=== PATIENT | male | born 1940 | race Caucasian/White ===

== ENCOUNTER 2017-04-18 12:24 | Emergency (ER) | payer MEDICARE, BC ==
[2017-04-18 12:52] LABS: Hematocrit 41.9 % (42.0-52.0); Hemoglobin 14.1 gm/dL (13.5-18.0); Mean Cell Volume 93.7 fl (78-100); Mean Corpuscular Hemoglobin 31.5 pg (27-31); Mean Corpuscular Hgb Conc 33.7 g/dl (32-36); Mean Platelet Volume 9.1 fl (6.0-9.5); Neutrophil # 5.6 K/mm3 (1.3-6.0); Neutrophil % 77.2 % (42-75.0); Platelet Count 112 K/mm3 (150-450); Red Blood Count 4.47 M/mm3 (4.7-6.0); Red Cell Distribution Width 13.2 % (11.5-14.0); White Blood Count 7.2 K/mm3 (4.0-10.5)
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
[2017-04-18 13:03] LABS: Prothrombin Time (Patient) 10.9 Seconds (9.4-11.4)
[2017-04-18 13:04] LABS: INR 1.05 INR (0.90-1.10); Partial Thrombolplastin Time 32.3 Seconds (24-32)
[2017-04-18 13:10] LABS: ALT 27 U/L (19-67); AST 27 U/L (0-48); Albumin * 3.8 gm/dl (3.4-5.0); Alkaline Phosphatase * 92 U/L (50-170); Amylase * 51 U/L (25-115); Anion Gap 13.6 mmol/L (6.8-13.8); BUN/Creatinine Ratio 15.6 (9.0-21.6); Bilirubin, Total 0.6 mg/dL (0.0-1.1); Blood Urea Nitrogen 23 mg/dL (6-23); Ca. Corrected For Albumin 8.6 mg/dL (8.4-10.2); Calcium * 8.8 mg/dL (7.9-10.9); Carbon Dioxide 28.8 mmol/L (24-32.6); Chloride 104 mmol/L (97-106); Glucose * 132 mg/dL (70-110); Potassium 4.4 mmol/L (3.4-4.6); Sodium 142 mmol/L (132-142); Total Protein 6.9 gm/dL (6.2-8.2)
[2017-04-18 13:11] LABS: Troponin I 0.072 ng/ml (0.00-0.10)
[2017-04-18 13:26] LABS: Urine Bilirubin Negative (NEGATIVE); Urine Blood Negative /ul (NEGATIVE); Urine Ketone Negative (NEGATIVE); Urine Nitrite Negative (NEGATIVE); Urine Protein Negative (NEGATIVE); Urine Specific Gravity 1.015 SP.GR. (1.005-1.030); Urine Urobilinogen Normal (NORMAL); Urine pH 7.5 pH (5.0-7.0)
[2017-04-18 13:30] VITALS: BP 152/99
[2017-04-18 13:34] LABS: Urine Appearance Clear; Urine Bacteria None Seen; Urine Color Yellow; Urine RBC None Seen /hpf (0-5); Urine WBC TRACE /hpf (0-5)
[2017-04-18 13:43] LABS: Cocaine Ur Negative (NEGATIVE); Urine Barbiturate Negative (NEGATIVE); Urine Benzodiazepines Negative (NEGATIVE); Urine Opiates Negative (NEGATIVE); Urine PCP Negative (NEGATIVE); Urine THC Negative (NEGATIVE)
== END 2017-04-18 13:57 | disposition short-term general hospital (02) ==
LOC: ER 12:24
DX: S06.6X1A Traumatic subarachnoid hemorrhage with loss of consciousness of 30 minutes or less, initial encounter (principal); V19.88XA Pedal cyclist (driver) (passenger) injured in other specified transport accidents, initial encounter; Y93.55 Activity, bike riding; Y92.414 Local residential or business street as the place of occurrence of the external cause; I48.91 Unspecified atrial fibrillation; Z79.01 Long term (current) use of anticoagulants; Z85.828 Personal history of other malignant neoplasm of skin; I10 Essential (primary) hypertension; Z79.899 Other long term (current) drug therapy
CPT/HCPCS: 36415; 70450; 71010; 72125; 73080; 80053; 80307; 81001; 82150; 84484; 85025; 85610; 85730; 86850; 86900; 93005; 96365; 99291; G0390; G0481

== ENCOUNTER 2019-09-17 08:00 | Inpatient (IN) ==
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
[2019-10-22] MEDS ORDERED: TRANEXAMIC ACID 1,000 MG in NORMAL SALINE 100 ML IV PRN (06:00)
[2019-10-22] MEDS ORDERED: ROPIVACAINE HCL/PF 100 MG, EPINEPHrine 0.2 MG, KETOROLAC TROMETHAMINE 30 MG in NORMAL S... IJ PRN (06:00)
[2019-10-22] MEDS ORDERED: MORPHINE SULFATE 15 MG TABLET.SA PO PRN (06:00)
[2019-10-22] MEDS ORDERED: ceFAZolin SODIUM 1 GM VIAL IV PRN (06:00)
[2019-10-22] MEDS: RINGER'S SOLUTION,LACTATED 1,000 ML IV PRN ×3 (11:20→14:15)
[2019-10-22] MEDS ORDERED: ceFAZolin SODIUM 1 GM VIAL ONE (12:01)
[2019-10-22] MEDS ORDERED: PROPOFOL VIAL IV ONE (12:25)
[2019-10-22] MEDS ORDERED: BUPIVACAINE HCL/EPINEPHRINE 50 ML VIAL ONE (12:25)
[2019-10-22] MEDS ORDERED: MIDAZOLAM HCL/PF 5 MG/ML VIAL ONE (12:25)
[2019-10-22] MEDS ORDERED: diphenhydrAMINE HCL 50 MG/ML VIAL IV PRN (15:26)
[2019-10-22] MEDS ORDERED: MAG HYDROX/ALUMINUM HYD/SIMETH 30 ML UDC PO PRN (15:26)
[2019-10-22] MEDS ORDERED: MAGNESIUM HYDROXIDE 30 ML UDC PO PRN (15:26)
[2019-10-22] MEDS ORDERED: MORPHINE SULFATE 2 MG/ML DISP.SYRIN IV PRN (15:26)
[2019-10-22] MEDS ORDERED: ZOLPIDEM TARTRATE 5 MG TABLET PO PRN (15:26)
--- NOTE | 2019-10-22 15:34 | OR ---
Operative Report - Dictated Report Narrative: Date: 10/22/2019 Preoperative diagnosis: Right knee degenerative joint disease. Postoperative diagnosis: Right knee degenerative joint disease. Procedure: Right total knee arthroplasty. Surgeon: Wilfredo Self M.D. Gallery Manager: Tripp Santana PA-C (provided and essential set of skilled, educated hands that assisted with transfer, positioning, prepping, draping, manipulation, retraction, placement of jigs, injection, insertion of implants, irrigation, closure wounds, and dressings all of which could not be performed by the available surgical crew) Anesthesia: Spinal with regional block and local periarticular joint injection. Complications: None Specimens: Bone. Estimated blood loss: Minimal. Tourniquet time: 120 Minutes at 300 millimeters of mercury. Retained implants: Depuy Attune size 7 right lugged cemented posterior stabilized femoral component. Size 7 fixed-bearing cemented tibial platform. 7 by 5 millimeter posterior stabilized cross-linked tibial insert. 41 millimeter medialized patella button. Indications: Mr. Ferraro is a 78-year-old gentleman who has had longstanding bilateral knee pain and arthrosis. He is here today for his first of 2 staged bilateral total knee arthroplasties. Today he is undergoing his right. This patient was followed in my clinic for period of time with significant complaints of right knee pain consistent with arthritic changes. He had failed conservative measures including, but not limited to, activity modification, passage of time, medications, and other conservative measures. Patient wished to proceed with surgical treatment. The risks, benefits, and alternatives were discussed in clinic. The risks of , blood clots, bleeding, infection, nerve/tendon blood vessel/ injury, malposition of components, intraoperative fracture, postoperative limited range of motion, persistent pain, failure of components, and need for additional procedures. Patient wished to proceed consent was obtained after answering all questions. Procedure: After marking the correct extremity on the floor, the patient was taken to the operating room. A timeout was performed. IV antibiotics consisting of Ancef were administered prior to the procedure. A regional followed by spinal anesthetic was induced by anesthesia, per my request, on the operative table with all bony prominences well-padded. Xie catheter was placed, and a bump was placed under the operative side buttock. SCDs and RAUL hose were utilized on the nonoperative leg. A well-padded tourniquet was applied to the operative thigh. The operative leg was then pre-scrubbed with alcohol, prepped, and draped in a standard sterile fashion. After exsanguinating the extremity with an Esmarch bandage, the tourniquet was inflated. After marking out the anterior knee for standard incision centered over the patella, the skin was incised and dissected down to the joint retinaculum. The joint retinaculum was marked out as well as the horizontal axis of the patella, and a standard medial parapatellar arthrotomy was then made. The most proximal aspect of the quadriceps tendon and the patella tendon insertion were protected from release. A partial synovectomy was performed as well as a resection of the infrapatellar fat pad. The distal femoral fat pad proximal to the trochlea was also resected using cautery. The soft tissues were elevated off the medial aspect of the proximal tibia using a Brock elevator ensuring that we did not stone sect the medial collateral ligament. Upon initial evaluation range of motion was approximately 15 degrees to 120 degrees of flexion. There were signs of advanced arthrosis in the medial, lateral, and patellofemoral joint spaces. There were large marginal osteophytes which were removed with a rongeur. The knee was hyperflexed and the patella was tucked laterally. Protecting the surrounding soft tissues with Homans, an entry drill was placed down the femoral canal using Whitesides line for guidance into the entry point. The intramedullary femoral alignment anatoliy was utilized in order to cut the distal femur in 5 degrees of valgus resecting 12 millimeters of bone. Next the distal femur was sized to a size 7. A posterior referencing guide was utilized to place the distal femoral cutting block in 3 degrees of external rotation. This was pinned into place. The rotation was confirmed both visually and based on anatomic landmarks. The 4 in 1 cutting jig of the appropriate size was utilized in order to make all bony cuts. The prasanth wing was used to ensure limited notching. Retractors were utilized in order to protect surrounding soft tissues. We then cut the box centered over the distal femur. This allowed for resection of the anterior and posterior cruciate ligaments. I then turned my attention to the preparation of the tibia. Using an extra medullary tibial alignment anatoliy, 3 millimeters of bone was resected off the medial articular surface. This was made perpendicular to the mechanical axis of the joint with the alignment anatoliy centered over the ankle mortise. The alignment anatoliy was checked and was noted to be parallel to the mechanical axis, centered over the medial one third of the tibial tubercle, paralleling the anterior surface of the tibia. We then turned our attention to the remaining meniscus and soft tissues. These were removed while protecting the surrounding ligaments and soft tissues. The marginal osteophytes off the anterior, posterior, medial, lateral aspects of the femur and tibia were removed. The tibia was sized out to a size 7. Next the tibia was drilled and punched in an externally rotated position. Next the trial femur and a series of tibial inserts were utilized in order to allow for full extension and maximal flexion. It was found that a 5 millimeter insert gave the best range of motion and stability at multiple flexion points as well as at full extension there was less than 2 mm of gapping both medially and laterally. There is minimal anterior translation with the knee at 90 degrees of flexion and no signs of being able to dislocate the knee. The patella was then prepared. The initial thickness was 27 millimeters. This was reamed down to 16 millimeters parallel to the anterior surface of the patella. It was sized out to a size 41 medialized patella button. This was then drilled and trialed. Without any medial restraint the patella tracked appropriately and did not sublux or dislocate. At this point, it was felt these were the appropriate sized implants, and all trials were removed. The standard periarticular joint injection consisting of ropivacaine, Toradol, and epinephrine were injected into the periarticular joint tissues. The bony surfaces were thoroughly irrigated with a pulsatile-suction saline irrigation device. A bone plug from the prior resected anterior chamfer cut was placed into the drill hole at the distal femur. The bony surfaces were then dried in preparation for placement of the implants. The cement was vacuum mixed per the rejogger's instructions. The cement was placed on the dry bony surfaces and posterior aspect of the implants. The implants were impacted into place, removing all extruded cement. At this point anesthesia administered tranexamic acid per protocol intravenously. The knee was placed in extension with axial loading with the trial insert while the cement cured. Once the cement cured, all remaining extruded cement was removed. The knee was placed through a range of motion with the trial insert to ensure appropriate range of motion and stability. Final range of motion was approximately 5 to 120 degrees. The knee was again thoroughly irrigated with pulsatile saline lavage. The final polyethylene insert was then impacted into place ensuring no retained soft tissues. The remaining periarticular joint injection was injected. A medium Hemovac drain was placed exiting superior laterally. The knee was then placed over a triangle and the arthrotomy was closed with interrupted #1 Vicryl after thoroughly irrigating the joint. The deep and subcutaneous tissues were closed with interrupted 0 and 3-0 Vicryl respectively. Skin was closed with a running subcutaneous 3-0 Monocryl and Prineo Dermabond dressing. 4 x 4's, Sof-Rol, and a full leg Armando wrap were applied. All sponge, needle, blade, and instrument counts were correct prior to closing the wounds. Postoperative condition: The patient was awoken and transferred to the postanesthesia care unit in stable condition. Plan is to be admitted to the inpatient medical/surgical floor postoperatively for 24 hours of IV antibiotics, physical therapy, occupational therapy, and medical comanagement. Patient will be weightbearing as tolerated with range of motion as tolerated. DVT prophylaxis will be with SCDs, RAUL hose, and pharmacological anticoagulation.
--- NOTE | 2019-10-22 15:57 | ANES ---
Post Anesthesia Discharge - Transfer of Care Transfer of Care handoff given to nurse: Yes - Discharge from PACU Discharge from PACU when meets criteria: Yes - Discharge to ASU Discharge to ASU-no complications/pt stable: Yes
--- NOTE | 2019-10-22 15:58 | ANES ---
Post Anesthesia Assessment - Vital Signs Vitals: Last Vital Signs Temp 36.7 C 10/22/19 15:50 Pulse 67 10/22/19 15:55 Resp 14 10/22/19 15:55 BP 109/70 10/22/19 15:55 Pulse Ox 96 10/22/19 15:55 Airway Patency: Normal - Mental Status Level Of Consciousness: Awake - Pain Level Pain Score: 0 - N/V Assessment Nausea/Vomiting Presence: None Dehydration:: No
[2019-10-22] MEDS: MORPHINE SULFATE 10 MG/0.5 ML SYRINGE PO PRN ×2 (17:29→23:54)
[2019-10-22] MEDS: KETOROLAC TROMETHAMINE 15 MG/ML VIAL IV SCH ×2 (17:30→22:53)
[2019-10-22] MEDS: ceFAZolin SODIUM 1 GM in DEXTROSE 5 % IN WATER 50 ML IV SCH ×2 (17:32)
[2019-10-22] MEDS: DEXTROSE 5%-LACTATED RINGERS 1,000 ML IV PRN (17:32)
[2019-10-22] MEDS ORDERED: METOPROLOL SUCCINATE 25 MG PO SCH (21:00)
[2019-10-22] MEDS: MORPHINE SULFATE 15 MG TABLET.SA PO SCH (21:15)
[2019-10-22] MEDS: ACETAMINOPHEN 500 MG TABLET PO PRN (21:15)
[2019-10-22] MEDS: SENNOSIDES/DOCUSATE SODIUM 1 TAB TABLET PO SCH (21:16)
[2019-10-22] MEDS: BETA-CAROTENE(A) W-C , E/MIN 1 TAB TABLET PO SCH (21:16)
[2019-10-22] MEDS: METOPROLOL SUCCINATE 25 MG TABLET.SA PO SCH (21:35)
[2019-10-23] MEDS: ceFAZolin SODIUM 1 GM in DEXTROSE 5 % IN WATER 50 ML IV SCH ×4 (00:27→05:11)
[2019-10-23] MEDS: DEXTROSE 5%-LACTATED RINGERS 1,000 ML IV PRN (00:58)
[2019-10-23] MEDS: KETOROLAC TROMETHAMINE 15 MG/ML VIAL IV SCH (04:08)
[2019-10-23] MEDS: MORPHINE SULFATE 10 MG/0.5 ML SYRINGE PO PRN ×3 (05:17→16:33)
[2019-10-23 06:59] LABS: Anion Gap 10.3 mmol/L (6.8-13.8); Calcium * 8.5 mg/dL (7.9-10.9); Carbon Dioxide 28.1 mmol/L (24-32.6); Estimated Creat Clear 38.6; Potassium 4.4 mmol/L (3.4-4.6)
[2019-10-23 07:11] LABS: Hematocrit 36.8 % (42.0-52.0); Hemoglobin 11.9 gm/dL (13.5-18.0); Mean Cell Volume 96.8 fl (78-100); Mean Corpuscular Hemoglobin 31.3 pg (27-31); Mean Corpuscular Hgb Conc 32.3 g/dl (32-36); Mean Platelet Volume 9.8 fl (8-11.3); Red Cell Distribution Width 14.1 % (11.5-14.0); White Blood Count 6.4 K/mm3 (4.0-10.5)
[2019-10-23 07:19] LABS: Platelet Count 80 K/mm3 (150-450)
--- NOTE | 2019-10-23 08:45 | PN ---
Subjective - Date and Time Seen Date: 10/23/19 Time: 07:50 Subjective Narrative: Patient reports pain controlled. No nausea or upset stomach. Was able to eat breakfast. No lightheadedness. Has no complaints at this time. Feels ready for tomorrow LTKA. Objective Objective Narrative: RLE Bandages C/D/I. Able to wiggle toes. No ankle movement due to fusion. Patient up in chair. Alert and oriented. No distress. Labs and vitals reviewed. - Vitals Vitals: Last Vital Signs Temp 37.0 C 10/23/19 07:11 Pulse 78 10/23/19 07:11 Resp 16 10/23/19 07:11 BP 143/79 10/23/19 07:11 Pulse Ox 96 10/23/19 07:11 - Abnormal Lab Findings Abnormal Lab Findings: Abnormal Lab Results 10/23/19 10/23/19 Range/Units 06:48 06:48 RBC 3.80 L (4.7-6.0) M/mm3 Hgb 11.9 L (13.5-18.0) gm/dL Hct 36.8 L (42.0-52.0) % MCH 31.3 H (27-31) pg RDW 14.1 H (11.5-14.0) % Plt Count 80 L (150-450) K/mm3 BUN 30 H (6-23) mg/dL Creatinine 1.58 H (0.4-1.4) mg/dL Est GFR (Non-Af Amer) 45 L (60-130) mL/min Random Glucose 136 H (70-110) mg/dL Cauti Physician Documentation - Urinary Catheter Management Urethral (Xie) Date of Insertion: 10/22/19 Time of Insertion: 13:20 Assessment/Plan - Problems/Diagnosis (1) Status post total right knee replacement Problem: Acute Narrative: PT, pain control, anticoagulation. Left leg marked for tomorrow. NPO midnight tonight. (2) Acute blood loss anemia Problem: Acute Narrative: 11.9 down from 15.2 grams. Asymptomatic. Observation at this time. (3) Hypertension Problem: Chronic Qualifiers:
[2019-10-23] MEDS: HYDROCHLOROTHIAZIDE 25 MG TABLET PO SCH (08:46)
[2019-10-23] MEDS: LOSARTAN POTASSIUM 50 MG TABLET PO SCH (08:46)
[2019-10-23] MEDS: MULTIVITAMINS 1 CAP CAPSULE PO SCH (08:46)
[2019-10-23] MEDS: ALLOPURINOL 300 MG TABLET PO SCH (08:46)
[2019-10-23] MEDS: BETA-CAROTENE(A) W-C , E/MIN 1 TAB TABLET PO SCH ×2 (08:46→20:39)
[2019-10-23] MEDS: ACETAMINOPHEN 500 MG TABLET PO PRN (08:49)
[2019-10-23] MEDS: MORPHINE SULFATE 15 MG TABLET.SA PO SCH ×2 (08:49→20:42)
[2019-10-23] MEDS ORDERED: APIXABAN 2.5 MG TABLET PO SCH (09:00)
[2019-10-23] MEDS ORDERED: FLU VACC QS2019-20(6MOS UP)/PF 60 MCG/0.5 ML SYRINGE IM ONE (09:00)
[2019-10-23] MEDS: METOPROLOL SUCCINATE 25 MG TABLET.SA PO SCH (20:38)
[2019-10-23] MEDS: SENNOSIDES/DOCUSATE SODIUM 1 TAB TABLET PO SCH (20:39)
[2019-10-24] MEDS: ACETAMINOPHEN 500 MG TABLET PO PRN (02:56)
[2019-10-24] MEDS: RINGER'S SOLUTION,LACTATED 1,000 ML IV PRN ×2 (05:49→12:12)
[2019-10-24] MEDS ORDERED: TRANEXAMIC ACID 1,000 MG in NORMAL SALINE 100 ML IV PRN (06:00)
[2019-10-24] MEDS ORDERED: ceFAZolin SODIUM 1 GM VIAL IV PRN (06:00)
[2019-10-24] MEDS ORDERED: ROPIVACAINE HCL/PF 100 MG, EPINEPHrine 0.2 MG, KETOROLAC TROMETHAMINE 15 MG in NORMAL S... IJ PRN (06:00)
[2019-10-24] MEDS: MORPHINE SULFATE 15 MG TABLET.SA PO SCH ×2 (08:24→20:11)
[2019-10-24] MEDS: LOSARTAN POTASSIUM 50 MG TABLET PO SCH (08:24)
[2019-10-24] MEDS: HYDROCHLOROTHIAZIDE 25 MG TABLET PO SCH (08:24)
[2019-10-24] MEDS ORDERED: ceFAZolin SODIUM 1 GM VIAL ONE (08:31)
[2019-10-24] MEDS ORDERED: ISOPROPYL ALCOHOL 480 APPL BTL MC ONE (08:40)
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
[2019-10-24] MEDS ORDERED: BUPIVACAINE HCL/EPINEPHRINE 50 ML VIAL IJ ONE (08:55)
[2019-10-24] MEDS ORDERED: LIDOCAINE HCL 20 ML VIAL ONE (08:55)
[2019-10-24] MEDS ORDERED: NORMAL SALINE 20 ML VIAL ONE (08:56)
[2019-10-24] MEDS ORDERED: BUPIVACAINE HCL/PF 10 ML VIAL ONE (08:56)
[2019-10-24] MEDS ORDERED: MIDAZOLAM HCL/PF 5 MG/ML VIAL ONE (08:56)
[2019-10-24] MEDS ORDERED: PROPOFOL VIAL IV ONE (08:56)
[2019-10-24] MEDS: BETA-CAROTENE(A) W-C , E/MIN 1 TAB TABLET PO SCH ×2 (10:53→20:11)
--- NOTE | 2019-10-24 12:08 | ANES ---
Anesthesia Procedure Note Procedure Note: ANESTHESIA PROCEDURE NOTE Date of procedure: 10/24/2011. Time of procedure: 1005. Performed by: Javier Mckenzie CRNA Impregnator: Adeola Leiva RN . Preprocedure diagnosis: Left knee DJD.. Post procedure diagnosis: Same. Procedure: Ultrasound-guided left adductor canal block for postoperative analgesia Indications: Postoperative analgesia. Findings: Patient brought to operating room #3, sedated and given a spinal anesthetic. Patient was then placed in the supine position. His left inner thigh was prepped with ChloraPrep. Ultrasound utilized to identify the saphenous nerve in the left adductor canal. A 20-gauge 4 inch regional block needle was advanced under ultrasound guidance until tip of needle was positioned just distal to the sartorius muscle. 20 mL of 0.25% Marcaine with epinephrine 1-200,000 was injected with adequate spread of local anesthesia noted. Regional block needle was removed intact. EBL: Minimal. Fluids: N/A. Specimen: N/A. Post procedure condition: The patient tolerated the procedure well. No complications were noted. Thank you for this consultation Javier Mckenzie CRNA
[2019-10-24] MEDS ORDERED: DEXTROSE 5%-LACTATED RINGERS 1,000 ML IV PRN (12:11)
[2019-10-24] MEDS ORDERED: MAG HYDROX/ALUMINUM HYD/SIMETH 30 ML UDC PO PRN (12:11)
--- NOTE | 2019-10-24 12:18 | OR ---
Operative Report - Dictated Report Narrative: Date: 10/24/2019 Preoperative diagnosis: Left knee degenerative joint disease. Postoperative diagnosis: Left knee degenerative joint disease. Procedure: Left total knee arthroplasty. Surgeon: Wilfredo Self M.D. Supervisor Special Services: Gil Dickey PA-C (provided and essential set of skilled, educated hands that assisted with transfer, positioning, prepping, draping, manipulation, retraction, placement of jigs, injection, insertion of implants, irrigation, closure wounds, and dressings all of which could not be performed by the available surgical crew) Anesthesia: Spinal with regional block and local periarticular joint injection. Complications: None Specimens: Bone. Estimated blood loss: Minimal. Tourniquet time: 105 Minutes at 300 millimeters of mercury. Retained implants: Depuy Attune size 8 left lugged cemented posterior stabilized femoral component. Size 7 fixed-bearing cemented tibial platform. 8 by 5 millimeter posterior stabilized cross-linked tibial insert. 41 millimeter medialized patella button. Indications: Mr. Ferraro is a 78-year-old gentleman who is here today for his second of 2 staged bilateral total knee arthroplasties on the left. This patient was followed in my clinic for period of time with significant complaints of left knee pain consistent with arthritic changes. He had failed conservative measures including, but not limited to, activity modification, passage of time, medications, and other conservative measures. Patient wished to proceed with surgical treatment. The risks, benefits, and alternatives were discussed in clinic. The risks of , blood clots, bleeding, infection, nerve/tendon blood vessel/ injury, malposition of components, intraoperative fracture, postoperative limited range of motion, persistent pain, failure of components, and need for additional procedures. Patient wished to proceed consent was obtained after answering all questions. Procedure: After marking the correct extremity on the floor, the patient was taken to the operating room. A timeout was performed. IV antibiotics consisting of Ancef were administered prior to the procedure. A regional followed by spinal anesthetic was induced by anesthesia, per my request, on the operative table with all bony prominences well-padded. Xie catheter was already in place, and a bump was placed under the operative side buttock. SCDs and RAUL hose were utilized on the nonoperative leg. A well-padded tourniquet was applied to the operative thigh. The operative leg was then pre-scrubbed with alcohol, prepped, and draped in a standard sterile fashion. After exsanguinating the extremity with an Esmarch bandage, the tourniquet was inflated. After marking out the anterior knee for standard incision centered over the patella, the skin was incised and dissected down to the joint retinaculum. The joint retinaculum was marked out as well as the horizontal axis of the patella, and a standard medial parapatellar arthrotomy was then made. The most proximal aspect of the quadriceps tendon and the patella tendon insertion were protected from release. A partial synovectomy was performed as well as a resection of the infrapatellar fat pad. The distal femoral fat pad proximal to the trochlea was also resected using cautery. The soft tissues were elevated off the medial aspect of the proximal tibia using a Brock elevator ensuring that we did not transect the medial collateral ligament. Upon initial evaluation range of motion was approximately 5 degrees to 110 degrees of flexion. There were signs of advanced arthrosis in the medial, lateral, and patellofemoral joint spaces. There were large marginal osteophytes which were removed with a rongeur. The knee was hyperflexed and the patella was tucked laterally. Protecting the surrounding soft tissues with Homans, an entry drill was placed down the femoral canal using Whitesides line for guidance into the entry point. The intramedullary femoral alignment anatoliy was utilized in order to cut the distal femur in 5 degrees of valgus resecting 11 millimeters of bone. Next the distal femur was sized to a size 8. A posterior referencing guide was utilized to place the distal femoral cutting block in 3 degrees of external rotation. This was pinned into place. The rotation was confirmed both visually and based on anatomic landmarks. The 4 in 1 cutting jig of the appropriate size was utilized in order to make all bony cuts. The prasanth wing was used to ensure no notching. Retractors were utilized in order to protect surrounding soft tissues. This cut did not result in any excessive notching. We then cut the box centered over the distal femur. This allowed for resection of the anterior and posterior cruciate ligaments. I then turned my attention to the preparation of the tibia. Using an extra medullary tibial alignment anatoliy, 3 millimeters of bone was r esected off the medial articular surface. This was made perpendicular to the mechanical axis of the joint with the alignment anatoliy centered over the ankle mortise. The alignment anatoliy was checked and was noted to be parallel to the mechanical axis, centered over the medial one third of the tibial tubercle, paralleling the anterior surface of the tibia. We then turned our attention to the remaining meniscus and soft tissues. These were removed while protecting the surrounding ligaments and soft tissues. The marginal osteophytes off the anterior, posterior, medial, lateral aspects of the femur and tibia were removed. The tibia was sized out to a size 7. Next the tibia was drilled and punched in an externally rotated position. Next the trial femur and a series of tibial inserts were utilized in order to allow for full extension and maximal flexion. It was found that a 5 millimeter insert gave the best range of motion and stability at multiple flexion points as well as at full extension there was less than 2 mm of gapping both medially and laterally. There is minimal anterior translation with the knee at 90 degrees of flexion and no signs of being able to dislocate the knee. The patella was then prepared. The initial thickness was 25 millimeters. This was reamed down to 15 millimeters parallel to the anterior surface of the patella. It was sized out to a size 41 medialized patella button. This was then drilled and trialed. Without any medial restraint the patella tracked appropriately and did not sublux or dislocate. At this point, it was felt these were the appropriate sized implants, and all trials were removed. The standard periarticular joint injection consisting of ropivacaine, Toradol, and epinephrine were injected into the periarticular joint tissues. The bony surfaces were thoroughly irrigated with a pulsatile-suction saline irrigation device. A bone plug from the prior resected anterior chamfer cut was placed into the drill hole at the distal femur. The bony surfaces were then dried in preparation for placement of the implants. The cement was vacuum mixed per the studio producer's instructions. The cement was placed on the dry bony surfaces and posterior aspect of the implants. The implants were impacted into place, removing all extruded cement. At this point anesthesia administered tranexamic acid per protocol intravenously. The knee was placed in extension with axial loading with the trial insert while the cement cured. Once the cement cured, all remaining extruded cement was removed. The knee was placed through a range of motion with the trial insert to ensure appropriate range of motion and stability. Final range of motion was approximately 0 to 120 degrees. The knee was again thoroughly irrigated with pulsatile saline lavage. The final polyethylene insert was then impacted into place ensuring no retained soft tissues. The remaining periarticular joint injection was injected. A medium Hemovac drain was placed exiting superior laterally. The knee was then placed over a triangle and the arthrotomy was closed with interrupted #1 Vicryl after thoroughly irrigating the joint. The deep and subcutaneous tissues were closed with interrupted 0 and 3-0 Vicryl respectively. Skin was closed with a running subcutaneous 3-0 Monocryl and Prineo Dermabond dressing. 4 x 4's, Sof-Rol, and a full leg Armando wrap were applied. All sponge, needle, blade, and instrument counts were correct prior to closing the wounds. Postoperative condition: The patient was awoken and transferred to the postanesthesia care unit in stable condition. Plan is to be admitted to the inpatient medical/surgical floor postoperatively for 24 hours of IV antibiotics, physical therapy, occupational therapy, and medical comanagement. Patient will be weightbearing as tolerated with range of motion as tolerated. DVT prophylaxis will be with SCDs, RAUL hose, and pharmacological anticoagulation. Anticipated hospital stay is approximately 1-3 days.
--- NOTE | 2019-10-24 12:30 | ANES ---
Post Anesthesia Assessment - Vital Signs Vitals: Last Vital Signs Temp 36.8 C 10/24/19 08:39 Pulse 96 10/24/19 08:39 Resp 20 10/24/19 08:39 BP 113/67 10/24/19 08:39 Pulse Ox 93 10/24/19 07:10 Airway Patency: Normal - Mental Status Level Of Consciousness: Awake - Pain Level Pain Score: 0 - N/V Assessment Nausea/Vomiting Presence: None Dehydration:: No
[2019-10-24] MEDS: ALLOPURINOL 300 MG TABLET PO SCH (13:00)
[2019-10-24] MEDS: DEXTROSE 5%-LACTATED RINGERS 1,000 ML IV PRN ×2 (13:00→22:41)
[2019-10-24] MEDS: MULTIVITAMINS 1 CAP CAPSULE PO SCH (13:00)
[2019-10-24] MEDS: ceFAZolin SODIUM 1 GM in DEXTROSE 5 % IN WATER 100 ML IV SCH ×4 (14:44→20:14)
[2019-10-24] MEDS: ONDANSETRON HCL/PF 2 MG/ML VIAL IV PRN (18:31)
[2019-10-24] MEDS: METOPROLOL SUCCINATE 25 MG TABLET.SA PO SCH (20:13)
[2019-10-24] MEDS: SENNOSIDES/DOCUSATE SODIUM 1 TAB TABLET PO SCH (20:14)
[2019-10-24] MEDS ORDERED: METOPROLOL SUCCINATE 25 MG TABLET.SA PO SCH (21:00)
[2019-10-25] MEDS: ACETAMINOPHEN 500 MG TABLET PO PRN ×4 (01:03→23:23)
[2019-10-25] MEDS: ceFAZolin SODIUM 1 GM in DEXTROSE 5 % IN WATER 100 ML IV SCH ×2 (02:26)
[2019-10-25 06:30] LABS: Hematocrit 33.4 % (42.0-52.0); Hemoglobin 10.7 gm/dL (13.5-18.0); Mean Cell Volume 97.4 fl (78-100); Mean Corpuscular Hemoglobin 31.2 pg (27-31); Mean Platelet Volume 9.6 fl (8-11.3); Platelet Count 74 K/mm3 (150-450); Red Blood Count 3.43 M/mm3 (4.7-6.0)
[2019-10-25 06:37] LABS: BUN/Creatinine Ratio 17.4 (9.0-21.6); Calcium * 8.4 mg/dL (7.9-10.9); Carbon Dioxide 27.5 mmol/L (24-32.6); Estimated Creat Clear 37.9; Potassium 4.5 mmol/L (3.4-4.6)
--- NOTE | 2019-10-25 07:54 | PN ---
Subjective - Date and Time Seen Date: 10/25/19 Time: 07:52 Subjective Narrative: Subjective: Reports difficulty sleeping. Was able to get to the chair with therapy. Pain is well-controlled. Voiding without any complications. Tolerating by mouth intake. Denies any nausea or vomiting. Denies calf pain. Physical exam: Alert and oriented to person, place and time Bilateral lower extremity: Palpable dorsalis pedis pulse. Sensation grossly intact to light touch. Dressings clean and intact on the left. Able to flex and extend ankle and toes. No excessive drainage. Calf and thigh are soft and nontender. Assessment: Postop day 1 status post left total knee arthroplasty, postop day 3 status post right total knee arthroplasty. Plan: Due to the need for pain control, post-operative limited mobility, protection of the surgical site and joint, monitoring of the wound, and the management of chronic medical conditions, he requires continued inpatient care. Continue with physical and occupational therapy weightbearing as tolerated. Continue with anticoagulation. 24 hours postoperative prophylactic antibiotics. Pain control with goal to rely on oral medications. Continue bowel regimen. Will need 6 weeks with walker or assitive device to protect joint while ambulating during the recovery process. Discharge planning. Discontinue drain and Xie catheter. Objective - Vitals Vitals: Last Vital Signs Temp 36.5 C 10/24/19 20:10 Pulse 101 H 10/25/19 02:15 Resp 18 10/25/19 02:15 BP 142/62 10/25/19 02:15 Pulse Ox 95 10/25/19 02:15 - Abnormal Lab Findings Abnormal Lab Findings: Abnormal Lab Results 10/25/19 10/25/19 Range/Units 06:24 06:24 RBC 3.43 L (4.7-6.0) M/mm3 Hgb 10.7 L (13.5-18.0) gm/dL Hct 33.4 L (42.0-52.0) % MCH 31.2 H (27-31) pg Plt Count 74 L (150-450) K/mm3 BUN 28 H (6-23) mg/dL Creatinine 1.61 H (0.4-1.4) mg/dL Est GFR (Non-Af Amer) 44 L (60-130) mL/min Random Glucose 136 H (70-110) mg/dL Cauti Physician Documentation - Urinary Catheter Management Urethral (Xie) Date of Insertion: 10/22/19 Time of Insertion: 13:20 Date of Removal: 10/25/19 Time of Removal: 05:00 Assessment/Plan - Problems/Diagnosis (1) Status post total left knee replacement Problem: Acute (2) Acute blood loss anemia Problem: Acute (3) Status post total right knee replacement Problem: Acute (4) Atrial fibrillation Problem: Chronic Qualifiers: Atrial fibrillation type: chronic (5) Hypertension Problem: Chronic Qualifiers:
[2019-10-25] MEDS ORDERED: NON-FORMULARY 1 DOSE DOSE (Losartan Potassium [Cozaar] 100 MG) PO SCH (09:00)
[2019-10-25] MEDS: LOSARTAN POTASSIUM 50 MG TABLET PO SCH (09:17)
[2019-10-25] MEDS: HYDROCHLOROTHIAZIDE 25 MG TABLET PO SCH (09:18)
[2019-10-25] MEDS: ALLOPURINOL 300 MG TABLET PO SCH (09:18)
[2019-10-25] MEDS: BETA-CAROTENE(A) W-C , E/MIN 1 TAB TABLET PO SCH ×2 (09:18→20:47)
[2019-10-25] MEDS: MORPHINE SULFATE 15 MG TABLET.SA PO SCH (09:18)
[2019-10-25] MEDS: APIXABAN 2.5 MG TABLET PO SCH ×2 (09:18→20:46)
[2019-10-25] MEDS: MULTIVITAMINS 1 CAP CAPSULE PO SCH (09:18)
[2019-10-25] MEDS: SENNOSIDES/DOCUSATE SODIUM 1 TAB TABLET PO SCH (20:46)
[2019-10-25] MEDS: METOPROLOL SUCCINATE 25 MG TABLET.SA PO SCH (20:47)
[2019-10-25 22:21] LABS: Urine Bilirubin Negative (NEGATIVE); Urine Blood 250 /ul (NEGATIVE); Urine Ketone Negative (NEGATIVE); Urine Nitrite Negative (NEGATIVE); Urine Protein Negative (NEGATIVE); Urine Specific Gravity 1.015 SP.GR. (1.005-1.030); Urine Urobilinogen Normal (NORMAL)
[2019-10-25 22:31] LABS: Urine Appearance Clear (CLEAR); Urine Bacteria None Seen; Urine Color Dark Yellow; Urine WBC None Seen /hpf (0-5)
[2019-10-26] MEDS: ACETAMINOPHEN 500 MG TABLET PO PRN ×2 (06:30→13:40)
[2019-10-26] MEDS ORDERED: TAMSULOSIN HCL 0.4 MG CAP.SR.24H PO ONE (08:00)
[2019-10-26] MEDS: BETA-CAROTENE(A) W-C , E/MIN 1 TAB TABLET PO SCH ×2 (08:09→20:37)
[2019-10-26] MEDS: HYDROCHLOROTHIAZIDE 25 MG TABLET PO SCH (08:09)
[2019-10-26] MEDS: ALLOPURINOL 300 MG TABLET PO SCH (08:09)
[2019-10-26] MEDS: LOSARTAN POTASSIUM 50 MG TABLET PO SCH (08:09)
[2019-10-26] MEDS: MULTIVITAMINS 1 CAP CAPSULE PO SCH (08:09)
[2019-10-26] MEDS: APIXABAN 2.5 MG TABLET PO SCH ×2 (08:13→20:38)
--- NOTE | 2019-10-26 12:15 | CONS ---
[facility] - General Date of Service: 10/26/19 Source: patient - History of Present Illness Initial Comments: 78-year-old male who I am asked to consult on for penile edema and bruising. He underwent bilateral knee replacements, one on Tuesday the other on Tuesday. He had a Xie catheter placed with the first procedure. He is had pretty extensive penile swelling. The catheter is out now. He reports prior to the procedure having no known swelling although did have some troubles urinating at times. He was placed on Flomax today. 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 Otherwise no prior urological surgery. No known history of urinary tract infection. No known history of urological familial problems such as prostate cancer or bladder cancer. Social history: nonsmoker Allergies/Adverse Reactions: Allergies oxycodone [From OxyContin] Adverse Reaction (Mild, Verified 10/22/19 16:13) vomiting Home Medications: Home Medications Medication Instructions Recorded Last Taken multivitamin 1 tab PO DAILY 03/30/18 10/22/19 apixaban 2.5 mg tablet 2.5 mg PO BID 10/06/18 10/15/19 acetaminophen 500 mg tablet 1,000 mg PO Q6H PRN tab 12/19/18 Unknown vitamins A,C,G-bjsy-fuvqjc 14,320 1 cap PO BID cap 12/19/18 10/22/19 unit-226 mg-200 unit capsule allopurinol 300 mg tablet 300 mg PO DAILY #90 tab 09/10/19 10/22/19 hydrochlorothiazide 25 mg tablet 25 mg PO DAILY #90 tab 10/09/19 10/22/19 sildenafil (pulm.hypertension) 20 See Rx Instructions .ROUTE 10/09/19 10/22/19 mg tablet .COMPLEX #30 unknown measurement unit code: tablet Losartan Potassium [Cozaar] 100 mg PO DAILY 10/22/19 Unknown Metoprolol Succinate 75 mg PO HS 10/22/19 Unknown Procedures Ankle fusion (07/05/00) Application or administration of an adhesion barrier substance (05/02/15) Colonoscopy (01/10/09) Excision of bone for graft, other bones (07/05/00) Insertion of intraocular lens prosthesis at time of cataract extraction, one- stage (12/05/07) Introduction of Adhesion Barrier into Peritoneal Cavity, Open Approach (05/02/15) Non-invasive placement of bone growth stimulator (05/25/01) Other and open repair of indirect inguinal hernia with graft or prosthesis (05/02/15) Other local excision or destruction of lesion of joint, foot and toe (10/15/10) Phacoemulsification and aspiration of cataract (12/05/07) Removal of implanted devices from bone, tibia and fibula (05/25/01) Supplement Right Inguinal Region with Synthetic Substitute, Open Approach (05/02/15) Medications - Medications Current Medications: Current Medications Acetaminophen (Tylenol) 1,000 mg PO Q6H PRN PRN Reason: Mild pain (pain scale 1-3) Stop: 11/21/19 15:27 Last Admin: 10/26/19 06:30 Dose: 1,000 mg Documented by: Al Hydrox/Mg Hydrox/Simethicone (Maalox Plus Suspension) 30 ml PO Q6H PRN PRN Reason: Indigestion Stop: 11/21/19 15:27 Last Admin: 10/23/19 01:58 Dose: 30 ml Documented by: Allopurinol (Zyloprim) 300 mg PO DAILY [facility] Stop: 11/22/19 09:01 Last Admin: 10/26/19 08:09 Dose: 300 mg Documented by: Apixaban (Eliquis) 2.5 mg PO BID [facility] Stop: 11/24/19 09:01 Last Admin: 10/26/19 08:13 Dose: 2.5 mg Documented by: Hydrochlorothiazide (Hydrodiuril) 25 mg PO DAILY [facility] Stop: 11/22/19 09:01 Last Admin: 10/26/19 08:09 Dose: 25 mg Documented by: Dextrose/Lactated Ringer's (Dextrose 5%-Lr) 1,000 mls @ 125 mls/hr IV .Q8H PRN PRN Reason: HYDRATION Stop: 11/21/19 15:27 Last Infusion: 10/25/19 07:00 Dose: Infused Documented by: Losartan Potassium (Cozaar) 100 mg PO DAILY [facility] Stop: 11/22/19 09:01 Last Admin: 10/26/19 08:09 Dose: 100 mg Documented by: Metoprolol Succinate (Toprol Xl) 75 mg PO HS [facility] Stop: 11/21/19 21:31 Last Admin: 10/25/19 20:47 Dose: 75 mg Documented by: Morphine Sulfate (Morphine Sulfate Conc. Oral Solution) 10 mg PO Q2H PRN PRN Reason: Moderate Pain (pain scale 4-6) Stop: 11/21/19 15:27 Last Admin: 10/23/19 16:33 Dose: 10 mg Documented by: Multivitamins/Folic Acid (Multivitamin Madhuri) 1 cap PO DAILY [facility] Stop: 11/22/19 09:01 Last Admin: 10/26/19 08:09 Dose: 1 cap Documented by: Ondansetron HCl (Zofran) 4 mg IV Q4H PRN PRN Reason: Nausea And Vomiting Stop: 11/21/19 15:27 Last Admin: 10/24/19 18:31 Dose: 4 mg Documented by: Senna/Docusate Sodium (Senokot-S) 2 tab PO HS [facility] Stop: 11/21/19 21:01 Last Admin: 10/25/19 20:46 Dose: 2 tab Documented by: Vit A/Vit C/Vit E/Selen/Cu/Zn/Lutei (Ocuvite) 1 tab PO BID [facility] Stop: 11/21/19 21:01 Last Admin: 10/26/19 08:09 Dose: 1 tab Documented by: Review of Systems - Review of Systems Generalized/Overall Review: Present: No Symptoms Reported EENTM: Present: No Symptoms Reported Respiratory: Present: No Symptoms Reported Cardiac: Present: No Symptoms Reported Abdominal: Present: No Symptoms Reported Genitourinary: Present: Frequency, Hesitancy Musculoskeletal: Present: Joint Pain Neurological: Present: No Symptoms Reported Skin: Present: No Symptoms Reported Endocrine: Present: No Symptoms Reported Physical Examination - Exam Vital Signs: Vital Signs - Last Taken Temp 98.2 F 10/26/19 11:43 Pulse 85 10/26/19 11:43 Resp 16 10/26/19 11:43 BP 146/77 10/26/19 11:43 Pulse Ox 95 10/26/19 11:43 O2 Oxygen Delivery Method Room Air Constitutional: Present: Alert, Oriented x3 ENT Exam: Present: hearing grossly normal Neck: Present: full range of motion Respiratory: Present: lungs clear, no respiratory distress Cardiovascular/Chest: Present: normal peripheral pulses Abdomen: Present: Normal bowel sounds, soft, nontender, obese /Rectal: Present: Other - Penis and scrotum are swollen and ecchymotic. The meatus could be visualized although the foreskin was edematous. No signs of infection - Results and Findings: Narrative: Patient has postoperative penile edema. I see no acute problems. Recommend elevation and ice while he is in bed or in the chair. May take several weeks to completely resolve. Call back if acute changes. Patient also likely has underlying BPH. Recommend continuing Flomax when he goes home. Lab/Microbiology results last 24 hrs: Abnormal/Pending Laboratory Last 24 HRS 10/25/19 22:15 Urine Blood 250 H Urine RBC 5-10 H - Assessments/Findings (1) Penile edema Problem: Acute
--- NOTE | 2019-10-26 13:01 | PN ---
Subjective - Date and Time Seen Date: 10/26/19 Time: 10:00 Subjective Narrative: Subjective: Reports better sleep. Was able to walk 30-40 ft with therapy although needed significant stand by assistance. Pain is well-controlled. Voiding without any complications this AM but had some retension last PM. Has some penile and scrotal swelling. Tolerating by mouth intake. Denies any nausea or vomiting. Denies calf pain. Physical exam: Alert and oriented to person, place and time Bilateral lower extremity: Palpable dorsalis pedis pulse. Sensation grossly intact to light touch. Wounds benign. Able to flex and extend ankle and toes. No excessive drainage. Calf and thigh are soft and nontender. Assessment: Postop day 2 status post left total knee arthroplasty, postop day 4 status post right total knee arthroplasty. Plan: Due to the need for pain control, post-operative limited mobility, protection of the surgical site and joint, monitoring of the wound, and the management of chronic medical conditions, he requires continued inpatient care. Continue with physical and occupational therapy weightbearing as tolerated. Continue with anticoagulation. Pain control with goal to rely on oral medications. Continue bowel regimen. Will need 6 weeks with walker or assitive device to protect joint while ambulating during the recovery process. Discharge planning. UA performed (negative for UTI) and urology consult. Objective - Vitals Vitals: Last Vital Signs Temp 36.8 C 10/26/19 11:43 Pulse 85 10/26/19 11:43 Resp 16 10/26/19 11:43 BP 146/77 10/26/19 11:43 Pulse Ox 95 10/26/19 11:43 - Abnormal Lab Findings Abnormal Lab Findings: Abnormal Lab Results 10/25/19 Range/Units 22:15 Urine Blood 250 H (NEGATIVE) /ul Urine RBC 5-10 H (0-5) /hpf [facility] Physician Documentation - Urinary Catheter Management Urethral (Xie) Date of Insertion: 10/22/19 Time of Insertion: 13:20 Date of Removal: 10/25/19 Time of Removal: 05:00 Assessment/Plan - Problems/Diagnosis (1) Status post total left knee replacement Problem: Acute (2) Acute blood loss anemia Problem: Acute (3) Status post total right knee replacement Problem: Acute (4) Atrial fibrillation Problem: Chronic Qualifiers: Atrial fibrillation type: chronic (5) Hypertension Problem: Chronic Qualifiers:
[2019-10-26] MEDS: TAMSULOSIN HCL 0.4 MG CAP.SR.24H PO SCH (18:47)
[2019-10-26] MEDS: MORPHINE SULFATE 10 MG/0.5 ML SYRINGE PO PRN (18:53)
[2019-10-26] MEDS: METOPROLOL SUCCINATE 25 MG TABLET.SA PO SCH (20:37)
[2019-10-26] MEDS: SENNOSIDES/DOCUSATE SODIUM 1 TAB TABLET PO SCH (20:38)
[2019-10-27] MEDS: ACETAMINOPHEN 500 MG TABLET PO PRN (04:52)
[2019-10-27] MEDS: MORPHINE SULFATE 10 MG/0.5 ML SYRINGE PO PRN ×3 (08:42→16:57)
[2019-10-27] MEDS: ALLOPURINOL 300 MG TABLET PO SCH (08:42)
[2019-10-27] MEDS: LOSARTAN POTASSIUM 50 MG TABLET PO SCH (08:43)
[2019-10-27] MEDS: HYDROCHLOROTHIAZIDE 25 MG TABLET PO SCH (08:43)
[2019-10-27] MEDS: APIXABAN 2.5 MG TABLET PO SCH ×2 (08:43→21:00)
[2019-10-27] MEDS: MULTIVITAMINS 1 CAP CAPSULE PO SCH (08:43)
[2019-10-27] MEDS: BETA-CAROTENE(A) W-C , E/MIN 1 TAB TABLET PO SCH ×2 (08:43→21:00)
--- NOTE | 2019-10-27 13:51 | PN ---
Subjective - Date and Time Seen Date: 10/27/19 Time: 13:48 Subjective Narrative: Subjective: Was able to walk in the halls and negotiate small riser steps with therapy although needed stand by assistance. Pain is tolerable but he feels it could be better controlled. Voiding improved and swelling improved. Tolerating by mouth intake. Denies any nausea or vomiting. Denies calf pain. Physical exam: Alert and oriented to person, place and time Bilateral lower extremity: Palpable dorsalis pedis pulse. Sensation grossly intact to light touch. Wounds benign. Able to flex and extend ankle and toes. No excessive drainage. Calf and thigh are soft and nontender. Assessment: Postop day 3 status post left total knee arthroplasty, postop day 5 status post right total knee arthroplasty. Plan: Due to the need for pain control, post-operative limited mobility, protection of the surgical site and joint, monitoring of the wound, and the management of chronic medical conditions, he requires continued inpatient care. Continue with physical and occupational therapy weightbearing as tolerated. Continue with anticoagulation. Pain control with goal to rely on oral medications - will adjust PRN dosing. Continue bowel regimen. Will need 6 weeks with walker to protect joint while ambulating during the recovery process. Discharge planning. Urology recommends ice/elevation and flomax for urinary issues Objective - Vitals Vitals: Last Vital Signs Temp 36.8 C 10/27/19 10:33 Pulse 99 10/27/19 10:33 Resp 20 10/27/19 10:33 BP 137/79 10/27/19 10:33 Pulse Ox 96 10/27/19 10:33 [facility] Physician Documentation - Urinary Catheter Management Urethral (Xie) Date of Insertion: 10/22/19 Time of Insertion: 13:20 Date of Removal: 10/25/19 Time of Removal: 05:00 Assessment/Plan - Problems/Diagnosis (1) Status post total left knee replacement Problem: Acute (2) Acute blood loss anemia Problem: Acute (3) Status post total right knee replacement Problem: Acute (4) Atrial fibrillation Problem: Chronic Qualifiers: Atrial fibrillation type: chronic (5) Hypertension Problem: Chronic Qualifiers:
[2019-10-27] MEDS: TAMSULOSIN HCL 0.4 MG CAP.SR.24H PO SCH (18:18)
[2019-10-27] MEDS: SENNOSIDES/DOCUSATE SODIUM 1 TAB TABLET PO SCH (21:00)
[2019-10-27] MEDS: METOPROLOL SUCCINATE 25 MG TABLET.SA PO SCH (21:00)
[2019-10-28] MEDS: ACETAMINOPHEN 500 MG TABLET PO PRN (00:55)
[2019-10-28] MEDS: MORPHINE SULFATE 10 MG/0.5 ML SYRINGE PO PRN ×2 (08:41→16:06)
[2019-10-28] MEDS: MULTIVITAMINS 1 CAP CAPSULE PO SCH (08:43)
[2019-10-28] MEDS: ALLOPURINOL 300 MG TABLET PO SCH (08:43)
[2019-10-28] MEDS: BETA-CAROTENE(A) W-C , E/MIN 1 TAB TABLET PO SCH ×2 (08:43→20:27)
[2019-10-28] MEDS: LOSARTAN POTASSIUM 50 MG TABLET PO SCH (08:43)
[2019-10-28] MEDS: HYDROCHLOROTHIAZIDE 25 MG TABLET PO SCH (08:43)
[2019-10-28] MEDS: APIXABAN 2.5 MG TABLET PO SCH ×2 (08:43→20:27)
[2019-10-28] MEDS: ONDANSETRON HCL/PF 2 MG/ML VIAL IV PRN (12:07)
--- NOTE | 2019-10-28 15:43 | PN ---
Subjective - Date and Time Seen Date: 10/28/19 Time: 15:41 Subjective Narrative: Subjective: Pain better controlled today. Bed and room mobility improving. Voiding improved and swelling improved. Tolerating by mouth intake. Denies any nausea or vomiting. Denies calf pain. Physical exam: Alert and oriented to person, place and time Bilateral lower extremity: Palpable dorsalis pedis pulse. Sensation grossly intact to light touch. Wounds benign. Able to flex and extend ankle and toes. No excessive drainage. Calf and thigh are soft and nontender. Assessment: Postop day 4 status post left total knee arthroplasty, postop day 6 status post right total knee arthroplasty. Plan: Due to the need for pain control, post-operative limited mobility, protection of the surgical site and joint, monitoring of the wound, and the management of chronic medical conditions, he requires continued inpatient care. Continue with physical and occupational therapy weightbearing as tolerated. Continue with anticoagulation. Continue bowel regimen. Will need 6 weeks with walker to protect joint while ambulating during the recovery process. Discharge planning - possible [facility] home tomorrow. Objective - Vitals Vitals: Last Vital Signs Temp 36.7 C 10/28/19 14:25 Pulse 80 10/28/19 14:25 Resp 20 10/28/19 14:25 BP 142/77 10/28/19 14:25 Pulse Ox 96 10/28/19 14:25 Cauti Physician Documentation - Urinary Catheter Management Urethral (Xie) Date of Insertion: 10/22/19 Time of Insertion: 13:20 Date of Removal: 10/25/19 Time of Removal: 05:00 Assessment/Plan - Problems/Diagnosis (1) Status post total left knee replacement Problem: Acute (2) Acute blood loss anemia Problem: Acute (3) Status post total right knee replacement Problem: Acute (4) Atrial fibrillation Problem: Chronic Qualifiers: Atrial fibrillation type: chronic (5) Hypertension Problem: Chronic Qualifiers:
[2019-10-28] MEDS: TAMSULOSIN HCL 0.4 MG CAP.SR.24H PO SCH (18:57)
[2019-10-28] MEDS: SENNOSIDES/DOCUSATE SODIUM 1 TAB TABLET PO SCH (20:27)
[2019-10-28] MEDS: METOPROLOL SUCCINATE 25 MG TABLET.SA PO SCH (20:27)
[2019-10-29] MEDS: MORPHINE SULFATE 10 MG/0.5 ML SYRINGE PO PRN (06:55)
[2019-10-29] MEDS: BETA-CAROTENE(A) W-C , E/MIN 1 TAB TABLET PO SCH (11:29)
[2019-10-29] MEDS: APIXABAN 2.5 MG TABLET PO SCH (11:29)
[2019-10-29] MEDS: LOSARTAN POTASSIUM 50 MG TABLET PO SCH (11:29)
[2019-10-29] MEDS: MULTIVITAMINS 1 CAP CAPSULE PO SCH (11:29)
[2019-10-29] MEDS: ACETAMINOPHEN 500 MG TABLET PO PRN (11:30)
[2019-10-29] MEDS: ALLOPURINOL 300 MG TABLET PO SCH (11:30)
[2019-10-29] MEDS: HYDROCHLOROTHIAZIDE 25 MG TABLET PO SCH (11:30)
--- NOTE | 2019-10-29 12:47 | DS ---
(1) Status post total left knee replacement Problem: Acute (2) Acute blood loss anemia Problem: Acute (3) Status post total right knee replacement Problem: Acute (4) Atrial fibrillation Problem: Chronic Qualifiers: Atrial fibrillation type: chronic (5) Hypertension Problem: Chronic Qualifiers: (6) CKD (chronic kidney disease) stage 3, GFR 30-59 ml/min Problem: Acute Date of Discharge:: 10/29/19 Hospital Course: Mr. Ferraro was admitted to the floor after undergoing staged bilateral total knee arthroplasties. Tolerated this well. Was admitted to the floor postoperatively for 24 hours of IV antibiotics, pain control, medical comanag ement, and occupational and physical therapy. OT and PT were consulted to assist with activities of daily living and ambulation. Was made weightbearing as tolerated with range of motion as tolerated. Pain was initially controlled with IV regimen. This was transitioned to oral once tolerating a by mouth intake. Was resumed on home diet and medications. Had a Xie catheter inserted and the operating room which was discontinued on postoperative day 1 after his second knee. A drain was placed intraoperatively into each knee which was discontinued on postoperative day 1. Eliquis SCD and RAUL hose were utilized for DVT prophylaxis. Vital signs remained stable to the hospital course. Labs were obtained which showed a final hemoglobin of 10.7 grams. Pre-op hemoglobin was 15.2. BMP was reviewed he was noted to have some renal insufficiency consistent with kidney disease stage III due to a BUN of 28 and a creatinine of 1.6 and a GFR of 44. He also had some urinary retention which resolved spontaneously with some Flomax as well as a urology consultation was placed secondary to some swelling which it was recommended that this be treated conservatively. Physical examination throughout the hospital course showed an extremity that had sensation that was intact to light touch, palpable pulses, a benign wound, motor intact to the toes, ankle, and knee. Knee range of motion was approximately 5 degrees to 60 degrees. He was slow to progress with therapy and needed additional assistance for mobility and thus was felt that he would benefit from continued inpatient therapy prior to returning home. He is being transferred to a intermediate facility today. Instructions: Continue with weightbearing as tolerated and range of motion as tolerated. It is okay to shower and get the wound wet as long as there is no drainage from the wound. Do not bathe or soak the wound. If there is any drainage from the wound keep the wound clean and dry and cover with dry gauze and tape. Change every 2- 3 days as needed if there is any drainage. Cover wound while showering if there is any drainage. Continue with physical therapy. Resume home diet. Report any fever over 101.5 Fahrenheit, uncontrolled pain, increased drainage, foul odor of drainage, new or increased calf pain or shortness of breath, or any other significant complaints. Continue with RAUL hose on the lower extremities until instructed otherwise. No driving until instructed otherwise. Follow up in approximately 2-3 weeks. Procedures Performed: see notes below List Procedures: Bilateral total knee arthroplasty, urology consultation Results and Findings: Lab Pending Results 10/23/19 06:48: WBC 6.4, RBC 3.80 L, Hgb 11.9 L, Hct 36.8 L, MCV 96.8, MCH 31.3 H, MCHC 32.3, RDW 14.1 H, Plt Count 80 L, MPV 9.8 10/23/19 06:48: Sodium 137, Plasma Sodium 138, Potassium 4.4, Chloride 103, Carbon Dioxide 28.1, Anion Gap 10.3, BUN 30 H, Creatinine 1.58 H, Est GFR (Non- Af Amer) 45 L, BUN/Creatinine Ratio 19.0, Random Glucose 136 H, Calcium 8.5 10/25/19 06:24: WBC 8.0 D, RBC 3.43 L, Hgb 10.7 L, Hct 33.4 L, MCV 97.4, MCH 31.2 H, MCHC 32.0, RDW 14.0, Plt Count 74 L, MPV 9.6 10/25/19 06:24: Sodium 134, Plasma Sodium 135, Potassium 4.5, Chloride 99, Carbon Dioxide 27.5, Anion Gap 12.0, BUN 28 H, Creatinine 1.61 H, Est GFR (Non- Af Amer) 44 L, BUN/Creatinine Ratio 17.4, Random Glucose 136 H, Calcium 8.4 10/25/19 22:15: Urine Color Dark yellow, Urine Appearance Clear, Urine pH 6.0, Ur Specific [place] 1.015, Urine Protein Negative, Urine Glucose (UA) Negative, Urine Ketones Negative, Urine Blood 250 H, Urine Nitrate Negative, Urine Bilirubin Negative, Urine Urobilinogen Normal, Ur Leukocyte Esterase Negative, Urine RBC 5-10 H, Urine WBC None seen, Ur Epithelial Cells None seen, Urine Bacteria None seen, Urine Culture Comments No culture indicated Discharge Location: [facility] Disposition: SNF Condition: Good Discharge Activity: Activity as tolerated, Weight bearing Discharge Diet: General/regular food Assisted Therapy: Physical Therapy, Occupation Therapy Referrals: Ilan Jean MD [Primary Care Provider] - Wilfredo Self MD [Staff Physician] - 11/13/19 9:45 am Problem Oriented Discharge Instructions to Patient/Family: Total Knee Replacement, Care After, [id number] Additional Patient Instructions (free text): To [facility] for therapies, PT and OT to evaluate and treat. Follow up at [facility] with Dr. Self in Orthopedic office on TuesdayNovember 12 at 9:45a.m. Prescriptions (Any new or edited meds): Morphine Sulfate 1 - 2 tab PO Q4H PRN #60 tab PRN Reason: Pain Transmission Status: Sent to [facility] Complete Home Medications List: Complete Home Medication List: multivitamin 1 tab PO DAILY 03/30/18 apixaban 2.5 mg tablet 2.5 mg PO BID 10/06/18 acetaminophen 500 mg tablet 1,000 mg PO Q6H PRN tab 12/19/18 vitamins A,C,E-folk-wyonhy 14,320 unit-226 mg-200 unit capsule 1 cap PO BID cap 12/19/18 allopurinol 300 mg tablet 300 mg PO DAILY #90 tab 09/10/19 hydrochlorothiazide 25 mg tablet 25 mg PO DAILY #90 tab 10/09/19 sildenafil (pulm.hypertension) 20 mg tablet See Rx Instructions .ROUTE .COMPLEX #30 unknown measurement unit code: tablet 10/09/19 Losartan Potassium [Cozaar] 100 mg PO DAILY 10/22/19 Metoprolol Succinate 75 mg PO HS 10/22/19 Morphine Sulfate 1 - 2 tab PO Q4H PRN #60 tab 10/29/19
[2019-10-29 13:45] VITALS: BP 114/61
== END 2019-10-29 13:55 | DRG 462 ==
LOC: MS 10-22 10:31 → EDSTATUS 10-22 11:30
PROVIDERS: ADMIT Orthopaedic Surgery; ATTEND Orthopaedic Surgery
CPT/HCPCS: 36415; 73560; 80048; 81001; 85027; 90686; 97110; 97116; 97161; 97164; 97165; 97530; 97535; J2405

== ENCOUNTER 2019-10-30 17:55 | Inpatient (IN) ==
[2019-10-30 19:01] LABS: Prothrombin Time (Patient) 12.1 Seconds (9.1-10.7)
[2019-10-30 19:03] LABS: Albumin * 2.2 gm/dl (3.4-5.0); Anion Gap 11.9 mmol/L (6.8-13.8); BUN/Creatinine Ratio 20.5 (9.0-21.6); Bilirubin, Total 1.7 mg/dL (0.0-1.1); Ca. Corrected For Albumin 9.1 mg/dL (8.4-10.2); Carbon Dioxide 28.7 mmol/L (24-32.6); INR 1.23 INR (0.92-1.08); Potassium 4.6 mmol/L (3.4-4.6); Total Protein 6.2 gm/dL (6.2-8.2)
[2019-10-30 19:06] LABS: Hematocrit 29.3 % (42.0-52.0); Hemoglobin 9.4 gm/dL (13.5-18.0); Mean Cell Volume 96.4 fl (78-100); Mean Corpuscular Hemoglobin 30.9 pg (27-31); Mean Corpuscular Hgb Conc 32.1 g/dl (32-36); Mean Platelet Volume 8.8 fl (8-11.3); Neutrophil # 9.2 K/mm3 (1.3-6.0); Neutrophil % 80.3 % (42-75.0); Platelet Count 235 K/mm3 (150-450); Red Blood Count 3.04 M/mm3 (4.7-6.0); Red Cell Distribution Width 14.7 % (11.5-14.0); White Blood Count 11.4 K/mm3 (4.0-10.5)
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
[2019-10-30] MEDS ORDERED: DIATRIZOATE MEGLUMINE, SODIUM 30 ML BTL PO ONE (19:26)
[2019-10-30] MEDS ORDERED: ONDANSETRON HCL/PF 2 MG/ML VIAL ONE (20:56)
[2019-10-30] MEDS ORDERED: ONDANSETRON HCL/PF 2 MG/ML VIAL IV ONE (20:57)
[2019-10-30 22:19] LABS: Urine Appearance Clear (CLEAR); Urine Bacteria TRACE; Urine Bilirubin 1 mg/dl (NEGATIVE); Urine Blood Negative /ul (NEGATIVE); Urine Color Yellow; Urine Ketone 5 mg/dL (NEGATIVE); Urine Nitrite Negative (NEGATIVE); Urine Protein Negative (NEGATIVE); Urine RBC None Seen /hpf (0-5); Urine Specific Gravity >=1.030 SP.GR. (1.005-1.030); Urine Urobilinogen Normal (NORMAL); Urine WBC 0-5 /hpf (0-5)
[2019-10-30] MEDS ORDERED: ONDANSETRON HCL/PF 2 MG/ML VIAL IV PRN (23:58)
[2019-10-31] MEDS ORDERED: SIMETHICONE 80 MG TAB.CHEW PO PRN (01:38)
[2019-10-31] MEDS ORDERED: MORPHINE SULFATE 4 MG/ML SYRG IV PRN (01:39)
[2019-10-31] MEDS ORDERED: NORMAL SALINE 1,000 ML IV PRN (01:40)
[2019-10-31] MEDS: MAGNESIUM HYDROXIDE 30 ML UDC PO SCH ×3 (02:05→20:56)
[2019-10-31] MEDS ORDERED: METOPROLOL SUCCINATE 100 MG TABLET.SA PO ONE (04:53)
[2019-10-31] MEDS ORDERED: BUMETANIDE 0.25 MG/ML VIAL IV ONE (04:55)
[2019-10-31] MEDS ORDERED: METOPROLOL SUCCINATE 25 MG TABLET.SA PO ONE (05:05)
[2019-10-31] MEDS ORDERED: METOPROLOL SUCCINATE 25 MG TABLET.SA PO SCH ×2 (05:15→21:00)
[2019-10-31] MEDS ORDERED: METOPROLOL SUCCINATE 50 MG TABLET.SA PO ONE (05:15)
[2019-10-31 05:33] LABS: Hematocrit 27.6 % (42.0-52.0); Hemoglobin 8.9 gm/dL (13.5-18.0); Mean Cell Volume 95.5 fl (78-100); Mean Corpuscular Hemoglobin 30.8 pg (27-31); Mean Corpuscular Hgb Conc 32.2 g/dl (32-36); Mean Platelet Volume 8.2 fl (8-11.3); Neutrophil % 85.9 % (42-75.0); Platelet Count 224 K/mm3 (150-450); Red Blood Count 2.89 M/mm3 (4.7-6.0); Red Cell Distribution Width 14.7 % (11.5-14.0)
[2019-10-31 06:03] LABS: Albumin * 1.9 gm/dl (3.4-5.0); Anion Gap 12.5 mmol/L (6.8-13.8); BUN/Creatinine Ratio 26.5 (9.0-21.6); CKMB 2.4 ng/mL (0.0-9.0); Ca. Corrected For Albumin 9.2 mg/dL (8.4-10.2); Calcium * 7.8 mg/dL (7.9-10.9); Carbon Dioxide 28.1 mmol/L (24-32.6); Potassium 4.6 mmol/L (3.4-4.6); Total Protein 5.7 gm/dL (6.2-8.2)
[2019-10-31 06:06] LABS: Troponin I 0.023 ng/mL (0.00-0.10)
[2019-10-31] MEDS ORDERED: MORPHINE SULFATE 2 MG/ML DISP.SYRIN IV PRN (06:15)
[2019-10-31 06:16] LABS: CRP 26.6 mg/dL (0.0-0.9)
[2019-10-31] MEDS ORDERED: NORMAL SALINE 1,000 ML IV ONE ×2 (06:33→06:45)
[2019-10-31] MEDS ORDERED: DILTIAZEM HCL 5 MG/ML VIAL IV ONE (06:51)
[2019-10-31 07:18] LABS: CKMB 2.5 ng/mL (0.0-9.0)
[2019-10-31 07:19] LABS: Troponin I 0.025 ng/mL (0.00-0.10)
[2019-10-31] MEDS ORDERED: VANCOMYCIN/WATER FOR INJ (PEG) 1 GM/200 ML BAG IV SCH (08:00)
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
[2019-10-31] MEDS ORDERED: LORazepam 2 MG/ML DISP.SYRIN IV ONE (08:05)
[2019-10-31] MEDS: CEFEPIME HCL 1 GM in DEXTROSE 5 % IN WATER 100 ML IV SCH ×2 (11:50)
[2019-10-31] MEDS: LOSARTAN POTASSIUM 50 MG TABLET PO SCH (13:08)
[2019-10-31] MEDS: HYDROCHLOROTHIAZIDE 25 MG TABLET PO SCH (13:08)
[2019-10-31] MEDS: BUMETANIDE 0.25 MG/ML VIAL IV SCH ×2 (13:40→20:57)
--- NOTE | 2019-10-31 13:54 | PN ---
Subjective - Date and Time Seen Date: 10/31/19 Time: 12:00 Subjective Narrative: Readmitted from SNF due to decreased urine output, nausea, and constipation. Found to have illius, urine retention, and tachycardia. Per family, he was not doing much any activity at [facility] and was in bed most of the time since being admitted 2 days ago. Other than abdominal bloating, he states he is feeling better. Denies excess pain. Family states they felt he was getting less than expected PT/activity at [facility]. Denies SOB, fevers, or other acute change other than mentioned. Objective - Vitals Vitals: Last Vital Signs Temp 36.8 C 10/31/19 11:30 Pulse 109 H 10/31/19 11:30 Resp 20 10/31/19 11:30 BP 89/48 L 10/31/19 11:30 Pulse Ox 98 10/31/19 11:30 - Abnormal Lab Findings Abnormal Lab Findings: Abnormal Lab Results 10/30/19 10/30/19 10/30/19 Range/Units 18:45 18:45 18:45 WBC 11.4 H (4.0-10.5) K/mm3 RBC 3.04 L (4.7-6.0) M/mm3 Hgb 9.4 L (13.5-18.0) gm/dL Hct 29.3 L (42.0-52.0) % RDW 14.7 H (11.5-14.0) % Immature Gran % (Auto) 2.50 H (0.001-0.429) % Immature Gran # (Auto) 0.28 H (0.000-0.0310) K/mm3 Neutrophils % 80.3 H (42-75.0) % Lymphocytes % 5.6 L (20-51) % Monocytes % 9.8 H (0.0-9) % Neutrophils # 9.2 H (1.3-6.0) K/mm3 Lymphocytes # 0.64 L (1.5-3.5) k/mm3 Monocytes # 1.1 H (0.0-1.0) k/mm3 PT 12.1 H (9.1-10.7) Seconds INR (Anticoag Therapy) 1.23 H (0.92-1.08) INR PTT (Mccone) (24-32) Seconds Sodium 131 L (132-142) mmol/L Chloride 95 L (97-106) mmol/L BUN 74 H D (6-23) mg/dL Creatinine 3.61 H D (0.4-1.4) mg/dL Est GFR (Non-Af Amer) 17 L D (60-130) mL/min BUN/Creatinine Ratio (9.0-21.6) Random Glucose 160 H (70-110) mg/dL Calcium (7.9-10.9) mg/dL Total Bilirubin 1.7 H (0.0-1.1) mg/dL C-Reactive Prot, Quant (0.0-0.9) mg/dL B-Natriuretic Peptide (5-650) pg/mL Total Protein (6.2-8.2) gm/dL Albumin 2.2 L (3.4-5.0) gm/dl Lipase 69 L (73-393) U/L Urine Bilirubin (NEGATIVE) mg/dl Gastric Occult Blood 10/30/19 10/30/19 10/30/19 Range/Units 18:45 20:26 22:14 WBC (4.0-10.5) K/mm3 RBC (4.7-6.0) M/mm3 Hgb (13.5-18.0) gm/dL Hct (42.0-52.0) % RDW (11.5-14.0) % Immature Gran % (Auto) (0.001-0.429) % Immature Gran # (Auto) (0.000-0.0310) K/mm3 Neutrophils % (42-75.0) % Lymphocytes % (20-51) % Monocytes % (0.0-9) % Neutrophils # (1.3-6.0) K/mm3 Lymphocytes # (1.5-3.5) k/mm3 Monocytes # (0.0-1.0) k/mm3 PT (9.1-10.7) Seconds INR (Anticoag Therapy) (0.92-1.08) INR PTT (Zarina) 38.6 H (24-32) Seconds Sodium (132-142) mmol/L Chloride (97-106) mmol/L BUN (6-23) mg/dL Creatinine (0.4-1.4) mg/dL Est GFR (Non-Af Amer) (60-130) mL/min BUN/Creatinine Ratio (9.0-21.6) Random Glucose (70-110) mg/dL Calcium (7.9-10.9) mg/dL Total Bilirubin (0.0-1.1) mg/dL C-Reactive Prot, Quant (0.0-0.9) mg/dL B-Natriuretic Peptide (5-650) pg/mL Total Protein (6.2-8.2) gm/dL Albumin (3.4-5.0) gm/dl Lipase (73-393) U/L Urine Bilirubin 1 H (NEGATIVE) mg/dl Gastric Occult Blood Positive H 10/31/19 10/31/19 10/31/19 Range/Units 05:30 05:30 06:49 WBC 14.0 H D (4.0-10.5) K/mm3 RBC 2.89 L (4.7-6.0) M/mm3 Hgb 8.9 L (13.5-18.0) gm/dL Hct 27.6 L (42.0-52.0) % RDW 14.7 H (11.5-14.0) % Immature Gran % (Auto) 2.40 H (0.001-0.429) % Immature Gran # (Auto) 0.34 H (0.000-0.0310) K/mm3 Neutrophils % 85.9 H (42-75.0) % Lymphocytes % 3.8 L (20-51) % Monocytes % (0.0-9) % Neutrophils # 12.0 H (1.3-6.0) K/mm3 Lymphocytes # 0.53 L (1.5-3.5) k/mm3 Monocytes # (0.0-1.0) k/mm3 PT (9.1-10.7) Seconds INR (Anticoag Therapy) (0.92-1.08) INR PTT (Zarina) (24-32) Seconds Sodium (132-142) mmol/L Chloride 96 L (97-106) mmol/L BUN 86 H (6-23) mg/dL Creatinine 3.25 H (0.4-1.4) mg/dL Est GFR (Non-Af Amer) 20 L (60-130) mL/min BUN/Creatinine Ratio 26.5 H (9.0-21.6) Random Glucose 153 H (70-110) mg/dL Calcium 7.8 L (7.9-10.9) mg/dL Total Bilirubin 2.0 H (0.0-1.1) mg/dL C-Reactive Prot, Quant 26.6 H (0.0-0.9) mg/dL B-Natriuretic Peptide 7397 H (5-650) pg/mL Total Protein 5.7 L (6.2-8.2) gm/dL Albumin 1.9 L (3.4-5.0) gm/dl Lipase (73-393) U/L Urine Bilirubin (NEGATIVE) mg/dl Gastric Occult Blood - Exam Exam Narrative: BLE - mild edema, wounds benign, RAUL hose in place, palp DP, thigh and calf soft, moving toes and ankles Constitutional: Present: Alert Assessment/Plan Plan Narrative: s/p Bilateral TKA - with regards to his knees - continue PT/OT - WBAT ROM as tolerated. I would like to see him up and in chair or ambulating at least TID. He has been on his chronic anticoagulation and should be continued from my stand point. Continue RAUL hose. Medicine service is managing his other issues - Negative PE (per CT and additional tests also negative), catheter in now for urinary retention, and bowel regimen with bowel rest and NG. He has had an increase in his BUN/Cr. compared to post-op.
[2019-10-31] MEDS ORDERED: ACETAMINOPHEN 500 MG TABLET PO ONE (18:14)
--- NOTE | 2019-10-31 18:28 | CONS ---
[facility] - General Date of Service: 10/31/19 Source: patient, family, RN/MD, RN notes reviewed, old records Exam Limitations: no limitations, other - He is a little disoriented from his baseline - History of Present Illness Timing/Duration: 1 week, getting worse Severity: moderate Associated Symptoms: other - Abdominal distention Allergies/Adverse Reactions: Allergies oxycodone [From OxyContin] Adverse Reaction (Mild, Verified 10/31/19 00:06) vomiting Home Medications: Home Medications Medication Instructions Recorded Last Taken multivitamin 1 tab PO DAILY 03/30/18 10/22/19 apixaban 2.5 mg tablet 2.5 mg PO BID 10/06/18 10/15/19 acetaminophen 500 mg tablet 1,000 mg PO Q6H PRN tab 12/19/18 Unknown vitamins A,C,V-lovs-jptsxu 14,320 1 cap PO BID cap 12/19/18 10/22/19 unit-226 mg-200 unit capsule allopurinol 300 mg tablet 300 mg PO DAILY #90 tab 09/10/19 10/22/19 hydrochlorothiazide 25 mg tablet 25 mg PO DAILY #90 tab 10/09/19 10/22/19 sildenafil (pulm.hypertension) 20 See Rx Instructions .ROUTE 10/09/19 10/22/19 mg tablet .COMPLEX #30 unknown measurement unit code: tablet Losartan Potassium [Cozaar] 100 mg PO DAILY 10/22/19 Unknown Metoprolol Succinate 75 mg PO HS 10/22/19 Unknown Morphine Sulfate 1 - 2 tab PO Q4H PRN #60 tab 10/29/19 Unknown Sennosides/Docusate Sodium 2 tab PO HS tab 10/29/19 Unknown [Senokot-S] Tamsulosin HCl [Flomax] 0.4 mg PO DAILY@1800 cap.sr.24h 10/29/19 Unknown Procedures Ankle fusion (07/05/00) Application or administration of an adhesion barrier substance (05/02/15) Colonoscopy (01/10/09) Excision of bone for graft, other bones (07/05/00) Insertion of intraocular lens prosthesis at time of cataract extraction, one- stage (12/05/07) Introduction of Adhesion Barrier into Peritoneal Cavity, Open Approach (05/02/15) Non-invasive placement of bone growth stimulator (05/25/01) Other and open repair of indirect inguinal hernia with graft or prosthesis (05/02/15) Other local excision or destruction of lesion of joint, foot and toe (10/15/10) Phacoemulsification and aspiration of cataract (12/05/07) Removal of implanted devices from bone, tibia and fibula (05/25/01) Replacement of Left Knee Joint with Synthetic Substitute, Cemented, Open Approach (10/22/19) Replacement of Right Knee Joint with Synthetic Substitute, Cemented, Open Approach (10/22/19) Supplement Right Inguinal Region with Synthetic Substitute, Open Approach (05/02/15) Medications - Medications Current Medications: Current Medications Bumetanide (Bumex) 1 mg IV BID [facility] Stop: 11/30/19 09:01 Last Admin: 10/31/19 13:40 Dose: 1 mg Documented by: Hydrochlorothiazide (Hydrodiuril) 25 mg PO DAILY [facility] Stop: 11/30/19 12:31 Last Admin: 10/31/19 13:08 Dose: Not Given Documented by: Cefepime HCl 1 gm/ Dextrose/ (Water) 100 mls @ 200 mls/hr IV Q24H [facility]; Protocol Stop: 11/30/19 08:01 Last Infusion: 10/31/19 12:20 Dose: Infused Documented by: VANCOMYCIN/WATER FOR INJ (PEG) (Vancomycin) 1 gm in 200 mls @ 75 mls/hr IV Q24H [facility] Stop: 11/30/19 08:01 Last Infusion: 10/31/19 15:18 Dose: Infused Documented by: Losartan Potassium (Cozaar) 100 mg PO DAILY [facility] Stop: 11/30/19 12:31 Last Admin: 10/31/19 13:08 Dose: Not Given Documented by: Magnesium Hydroxide (Milk Of Magnesia) 30 ml PO BID [facility] Stop: 11/30/19 01:39 Last Admin: 10/31/19 13:07 Dose: Not Given Documented by: Metoprolol Succinate (Toprol Xl) 25 mg PO ONCE [facility] Stop: 11/30/19 05:16 Last Admin: 10/31/19 05:37 Dose: 25 mg Documented by: Ondansetron HCl (Zofran) 4 mg IV Q6H PRN PRN Reason: Nausea Stop: 11/29/19 23:46 Last Admin: 10/31/19 05:22 Dose: 4 mg Documented by: Review of Systems - Review of Systems Generalized/Overall Review: Present: Weakness. Absent: Chills, Fever EENTM: Present: No Symptoms Reported Respiratory: Present: Other - Pickups. Absent: Cough, Shortness of Breath Cardiac: Present: Other - Edema. Absent: Chest Pain Abdominal: Present: Other - Marked abdominal distention, no bowel movement Genitourinary: Present: Retention - Required Xie placement Musculoskeletal: Present: Joint Pain - From his knee replacements Neurological: Present: Other - Disorientation Skin: Present: No Symptoms Reported Endocrine: Present: No Symptoms Reported Physical Examination - Exam Vital Signs: Vital Signs - Last Taken Temp 36.8 C 10/31/19 14:25 Pulse 99 10/31/19 14:25 Resp 20 10/31/19 14:25 BP 91/43 10/31/19 14:25 Pulse Ox 97 10/31/19 17:33 O2 Oxygen Delivery Method Nasal Cannula Constitutional: Present: Alert, Other - He appears confused although he can answer some questions I am familiar with his baseline, and this is a marked difference--- presumably from medication Eye Exam: bilateral eye: normal inspection Neck: Present: full range of motion Respiratory: Present: no respiratory distress, other - Hiccups Cardiovascular/Chest: Present: normal peripheral pulses Abdomen: Present: other - Markedly distended but soft. Very tympanitic but no percussion, direct, or rebound tenderness elicited and no guarding Extremity: Present: other - Upper extremity range of motion normal. Bilateral knee replacements Skin Exam: Present: normal color, diaphoresis Appearance: Present: other - Appears disoriented. Absent: appropriate insight Eye contact: Absent: good eye contact Thoughts: Present: other - Confused - Results and Findings: Lab/Microbiology results last 24 hrs: Abnormal/Pending Laboratory Last 24 HRS 10/31/19 10/31/19 10/31/19 06:49 05:30 05:30 WBC 14.0 H D RBC 2.89 L Hgb 8.9 L Hct 27.6 L RDW 14.7 H Immature Gran % (Auto) 2.40 H Immature Gran # (Auto) 0.34 H Neutrophils % 85.9 H Lymphocytes % 3.8 L Monocytes % Neutrophils # 12.0 H Lymphocytes # 0.53 L Monocytes # PT INR (Anticoag Therapy) PTT (Lares) Sodium Chloride 96 L BUN 86 H Creatinine 3.25 H Est GFR (Non-Af Amer) 20 L BUN/Creatinine Ratio 26.5 H Random Glucose 153 H Calcium 7.8 L Total Bilirubin 2.0 H C-Reactive Prot, Quant 26.6 H B-Natriuretic Peptide 7397 H Total Protein 5.7 L Albumin 1.9 L Lipase Urine Bilirubin Gastric Occult Blood 10/30/19 10/30/19 10/30/19 22:14 20:26 18:45 WBC RBC Hgb Hct RDW Immature Gran % (Auto) Immature Gran # (Auto) Neutrophils % Lymphocytes % Monocytes % Neutrophils # Lymphocytes # Monocytes # PT INR (Anticoag Therapy) PTT (Lares) 38.6 H Sodium Chloride BUN Creatinine Est GFR (Non-Af Amer) BUN/Creatinine Ratio Random Glucose Calcium Total Bilirubin C-Reactive Prot, Quant B-Natriuretic Peptide Total Protein Albumin Lipase Urine Bilirubin 1 H Gastric Occult Blood Positive H 10/30/19 10/30/19 10/30/19 18:45 18:45 18:45 WBC 11.4 H RBC 3.04 L Hgb 9.4 L Hct 29.3 L RDW 14.7 H Immature Gran % (Auto) 2.50 H Immature Gran # (Auto) 0.28 H Neutrophils % 80.3 H Lymphocytes % 5.6 L Monocytes % 9.8 H Neutrophils # 9.2 H Lymphocytes # 0.64 L Monocytes # 1.1 H PT 12.1 H INR (Anticoag Therapy) 1.23 H PTT (Lares) Sodium 131 L Chloride 95 L BUN 74 H D Creatinine 3.61 H D Est GFR (Non-Af Amer) 17 L D BUN/Creatinine Ratio Random Glucose 160 H Calcium Total Bilirubin 1.7 H C-Reactive Prot, Quant B-Natriuretic Peptide Total Protein Albumin 2.2 L Lipase 69 L Urine Bilirubin Gastric Occult Blood CT scan of the abdomen pelvis shows a markedly dilated colon, however there is air and stool through to the rectum - Assessments/Findings (1) Ileus, unspecified Diagnosis(s): The CT scan does not show any evidence of small bowel obstruction, however his colon is massively dilated down to the rectum. He does not have any peritoneal signs He has had 2 previous normal colonoscopies. He did have diverticulosis. He generally would move his bowels every 2 or 3 days, however he is a very active person on a normal basis and has been virtually immobile. 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 Would recommend administering Dulcolax by mouth and a suppository. The NG tube can be clamped for medication, and I would recommend a trial of p.o. Tylenol to see if this helps with his overall discomfort. I discussed the case with Dr. Zapata, and will follow the patient Problem: Acute
[2019-10-31] MEDS ORDERED: ACETAMINOPHEN 500 MG TABLET ONE (19:38)
[2019-10-31] MEDS: TAMSULOSIN HCL 0.4 MG CAP.SR.24H PO SCH (19:45)
[2019-10-31] MEDS: BISACODYL 10 MG SUPP.RECT RC SCH (19:45)
[2019-10-31] MEDS: BISACODYL 5 MG TABLET.DR PO SCH (19:45)
[2019-10-31] MEDS: BETA-CAROTENE(A) W-C , E/MIN 1 TAB TABLET PO SCH (20:57)
[2019-10-31] MEDS: SENNOSIDES/DOCUSATE SODIUM 1 TAB TABLET PO SCH (20:57)
[2019-10-31] MEDS: APIXABAN 2.5 MG TABLET PO SCH (20:57)
[2019-11-01 06:32] LABS: Hemoglobin 8.7 gm/dL (13.5-18.0); Mean Cell Volume 94.4 fl (78-100); Mean Corpuscular Hemoglobin 30.4 pg (27-31); Mean Corpuscular Hgb Conc 32.2 g/dl (32-36); Mean Platelet Volume 8.9 fl (8-11.3); Neutrophil # 9.8 K/mm3 (1.3-6.0); Neutrophil % 79.7 % (42-75.0); Platelet Count 268 K/mm3 (150-450); Red Blood Count 2.86 M/mm3 (4.7-6.0); Red Cell Distribution Width 14.7 % (11.5-14.0); White Blood Count 12.2 K/mm3 (4.0-10.5)
[2019-11-01 06:39] LABS: Albumin * 2.1 gm/dl (3.4-5.0); Anion Gap 14.5 mmol/L (6.8-13.8); BUN/Creatinine Ratio 30.7 (9.0-21.6); Bilirubin, Total 1.4 mg/dL (0.0-1.1); Ca. Corrected For Albumin 9.2 mg/dL (8.4-10.2); Carbon Dioxide 28.4 mmol/L (24-32.6); Potassium 3.9 mmol/L (3.4-4.6); Total Protein 6.1 gm/dL (6.2-8.2)
--- NOTE | 2019-11-01 07:47 | PN ---
Subjective - Date and Time Seen Date: 11/01/19 Time: 07:47 Subjective Narrative: No acute events overnight. Patient is more alert today. Pain well controlled. +BM. Discussed management with patient and at bedside. Objective - Review of Systems Generalized/Overall Review: Reports: Weakness EENTM: Denies: Throat Pain Respiratory: Reports: Shortness of Breath, Orthopnea. Denies: Cough, Wheezing Cardiac: Reports: No Symptoms Reported, Edema, Other Abdominal: Reports: Abdominal Pain, Constipation. Denies: Nausea, Vomiting Genitourinary Symptoms: Denies: Retention Musculoskeletal Complaints: Reports: Joint Pain - BL KNEE PAIN Neurological: Reports: Weakness Skin: Reports: Dryness Endocrine: Reports: No Symptoms Reported - Vitals Vitals: Last Vital Signs Temp 36.6 C 11/01/19 03:00 Pulse 105 H 11/01/19 03:00 Resp 22 H 11/01/19 03:00 BP 105/55 11/01/19 03:00 Pulse Ox 95 11/01/19 03:00 - Abnormal Lab Findings Abnormal Lab Findings: Abnormal Lab Results 11/01/19 11/01/19 Range/Units 06:00 06:00 WBC 12.2 H (4.0-10.5) K/mm3 RBC 2.86 L (4.7-6.0) M/mm3 Hgb 8.7 L (13.5-18.0) gm/dL Hct 27.0 L (42.0-52.0) % RDW 14.7 H (11.5-14.0) % Immature Gran % (Auto) 2.50 H (0.001-0.429) % Immature Gran # (Auto) 0.30 H (0.000-0.0310) K/mm3 Neutrophils % 79.7 H (42-75.0) % Lymphocytes % 6.9 L (20-51) % Eosinophils % 3.5 H (0.0-3.0) % Neutrophils # 9.8 H (1.3-6.0) K/mm3 Lymphocytes # 0.84 L (1.5-3.5) k/mm3 Chloride 96 L (97-106) mmol/L Anion Gap 14.5 H (6.8-13.8) mmol/L BUN 108 H D (6-23) mg/dL Creatinine 3.52 H (0.4-1.4) mg/dL Est GFR (Non-Af Amer) 18 L (60-130) mL/min BUN/Creatinine Ratio 30.7 H (9.0-21.6) Random Glucose 141 H (70-110) mg/dL Total Bilirubin 1.4 H (0.0-1.1) mg/dL Total Protein 6.1 L (6.2-8.2) gm/dL Albumin 2.1 L (3.4-5.0) gm/dl - EKG/Xray Findings EKG: atrial fibrillation, other - A-fib with RVR EKG read: Interp. by me XRAY: chest Interpretation: Reviewed by me - Concenring for atelecastasis and infiltrate - Exam Constitutional: Present: Alert, Oriented x3, Cooperative, No distress ENT Exam: Present: hearing grossly normal Neck: Present: non-tender, full range of motion Respiratory: Present: crackles - BL LL Cardiovascular/Chest: Present: normal peripheral pulses, regular rate, rhythm, no chest tenderness, no edema, no gallop, JVD, tachycardia, systolic murmur Abdomen: Present: Normal bowel sounds, nontender, distended /Rectal: Present: Other - SCROTAL EDEMA Extremity: Present: non-tender, no calf tenderness, normal capillary refill, lower extremity edema Skin Exam: Present: normal color, warm/dry Neurologic: Present: alert, oriented x 3 Appearance: Present: appropriate appearance Eye contact: Present: cooperative, good eye contact Thoughts: Present: normal thought pattern Assessment/Plan Plan Narrative: - Colonic Ileus: - D/C Morphine - On stool softener - Cont. as Dr. Epperson Recommendations -PNA: - D/C Vanc - Continue Cefepime -BUN elevated concerning for UGI bleed: - Hold eliquis -Start SCDS - NPO -CHF: -Switched to lasix 20 mg IV BID -Adequate UOP - Scrotal Sac to be ordered -IGLESIA: - Hold Cozaar - D/C Vanc - Continue to monitor -A-fib RVR: - Increase Metoprolol to 100 mg PO BID for better rate control - Not to administer with Systolic BP < 90 mm Hg Disposition: - Continue to monitor and diurese - Cont PT/OT - Appreciate recommendations from General Surgeon and Ortho - Problems/Diagnosis (1) Acute congestive heart failure Problem: Acute Qualifiers: Heart failure type: diastolic Qualified Code(s): I50.31 - Acute diastolic (congestive) heart failure (2) Hospital acquired PNA Problem: Acute (3) Anasarca Problem: Acute (4) Urinary retention Problem: Acute (5) Atrial fibrillation with RVR Problem: Acute (6) Atelectasis, bilateral Problem: Acute
[2019-11-01] MEDS: CEFEPIME HCL 1 GM in DEXTROSE 5 % IN WATER 100 ML IV SCH ×2 (08:57)
[2019-11-01] MEDS ORDERED: SILDENAFIL CITRATE 20 MG TABLET PO SCH (09:00)
--- NOTE | 2019-11-01 09:51 | PN ---
Subjective - Date and Time Seen Date: 11/01/19 Time: 09:37 Objective - Review of Systems Generalized/Overall Review: Reports: Fatigue. Denies: Chills, Fever EENTM: Reports: No Symptoms Reported, Other Respiratory: Denies: Shortness of Breath Cardiac: Denies: Chest Pain Abdominal: Reports: Other - states "feels better". Multiple involuntary liquid brown stools Genitourinary Symptoms: Reports: No Symptoms Reported, Other - martinez patent Musculoskeletal Complaints: Reports: Joint Pain Neurological: Reports: Other - confusion, delayed response/slowed mentation Skin: Reports: No Symptoms Reported Endocrine: Reports: No Symptoms Reported - Vitals Vitals: Last Vital Signs Temp 37.3 C 11/01/19 07:00 Pulse 112 H 11/01/19 07:00 Resp 18 11/01/19 07:00 BP 112/78 11/01/19 07:00 Pulse Ox 93 11/01/19 07:00 - Abnormal Lab Findings Abnormal Lab Findings: Abnormal Lab Results 11/01/19 11/01/19 Range/Units 06:00 06:00 WBC 12.2 H (4.0-10.5) K/mm3 RBC 2.86 L (4.7-6.0) M/mm3 Hgb 8.7 L (13.5-18.0) gm/dL Hct 27.0 L (42.0-52.0) % RDW 14.7 H (11.5-14.0) % Immature Gran % (Auto) 2.50 H (0.001-0.429) % Immature Gran # (Auto) 0.30 H (0.000-0.0310) K/mm3 Neutrophils % 79.7 H (42-75.0) % Lymphocytes % 6.9 L (20-51) % Eosinophils % 3.5 H (0.0-3.0) % Neutrophils # 9.8 H (1.3-6.0) K/mm3 Lymphocytes # 0.84 L (1.5-3.5) k/mm3 Chloride 96 L (97-106) mmol/L Anion Gap 14.5 H (6.8-13.8) mmol/L BUN 108 H D (6-23) mg/dL Creatinine 3.52 H (0.4-1.4) mg/dL Est GFR (Non-Af Amer) 18 L (60-130) mL/min BUN/Creatinine Ratio 30.7 H (9.0-21.6) Random Glucose 141 H (70-110) mg/dL Total Bilirubin 1.4 H (0.0-1.1) mg/dL Total Protein 6.1 L (6.2-8.2) gm/dL Albumin 2.1 L (3.4-5.0) gm/dl - Exam Constitutional: Present: Alert, Cooperative, Other - very slow to respond, blank. Absent: Oriented x3 ENT Exam: Present: normal ENT inspection Neck: Present: full range of motion Respiratory: Present: no respiratory distress Cardiovascular/Chest: Present: regular rate, rhythm Abdomen: Present: other - still distended, but less so. Non-tender /Rectal: Present: Other - incontinent of liquid stool, no perineal breakdown Extremity: Present: other - up to chair with max assist of 2-3. Absent: normal range of motion Neurologic: Present: other - global slowing, needs maximal coaching Appearance: Present: impaired insight Eye contact: Present: cooperative, decreased rate of speech. Absent: good eye contact Thoughts: Absent: normal thought pattern Assessment/Plan Plan Narrative: His bowels have moved, he is less distended, and he states he is hungry Would clamp NG and trial clear liquids with goal to remove NG later today. Encourage po pain control ADDENDUM at 3:30PM: Has had more bowel activity--loose involuntary stools. Tolerated liquids well, no nausea. No abdominal pain. Still distended/tympanitic, but no tenderness No output when NG reconnected, so NG removed. Would continue Dulcolax. - Problems/Diagnosis (1) Ileus, unspecified Problem: Acute
[2019-11-01] MEDS: METOPROLOL SUCCINATE 100 MG TABLET.SA PO SCH ×2 (10:27→21:47)
[2019-11-01] MEDS: MAGNESIUM HYDROXIDE 30 ML UDC PO SCH ×2 (10:27→21:46)
[2019-11-01] MEDS: ALLOPURINOL 300 MG TABLET PO SCH (10:28)
[2019-11-01] MEDS: MULTIVITAMINS 1 CAP CAPSULE PO SCH (10:28)
[2019-11-01] MEDS: BISACODYL 5 MG TABLET.DR PO SCH (10:32)
[2019-11-01] MEDS: BETA-CAROTENE(A) W-C , E/MIN 1 TAB TABLET PO SCH ×2 (10:34→21:46)
[2019-11-01] MEDS: BISACODYL 10 MG SUPP.RECT RC SCH (11:35)
[2019-11-01] MEDS: FUROSEMIDE 10 MG/ML VIAL IV SCH ×2 (11:41→21:46)
--- NOTE | 2019-11-01 12:48 | PN ---
Subjective - Date and Time Seen Date: 11/01/19 Time: 07:45 Subjective Narrative: Resting in bed. He states he has not been out of bed since admission. He still feels less than great. He denies significant knee pain. He just feels rundown. Objective - Vitals Vitals: Last Vital Signs Temp 36.9 C 11/01/19 10:18 Pulse 106 H 11/01/19 11:41 Resp 16 11/01/19 10:18 BP 109/63 11/01/19 11:41 Pulse Ox 93 11/01/19 10:18 - Abnormal Lab Findings Abnormal Lab Findings: Abnormal Lab Results 11/01/19 11/01/19 Range/Units 06:00 06:00 WBC 12.2 H (4.0-10.5) K/mm3 RBC 2.86 L (4.7-6.0) M/mm3 Hgb 8.7 L (13.5-18.0) gm/dL Hct 27.0 L (42.0-52.0) % RDW 14.7 H (11.5-14.0) % Immature Gran % (Auto) 2.50 H (0.001-0.429) % Immature Gran # (Auto) 0.30 H (0.000-0.0310) K/mm3 Neutrophils % 79.7 H (42-75.0) % Lymphocytes % 6.9 L (20-51) % Eosinophils % 3.5 H (0.0-3.0) % Neutrophils # 9.8 H (1.3-6.0) K/mm3 Lymphocytes # 0.84 L (1.5-3.5) k/mm3 Chloride 96 L (97-106) mmol/L Anion Gap 14.5 H (6.8-13.8) mmol/L BUN 108 H D (6-23) mg/dL Creatinine 3.52 H (0.4-1.4) mg/dL Est GFR (Non-Af Amer) 18 L (60-130) mL/min BUN/Creatinine Ratio 30.7 H (9.0-21.6) Random Glucose 141 H (70-110) mg/dL Total Bilirubin 1.4 H (0.0-1.1) mg/dL Total Protein 6.1 L (6.2-8.2) gm/dL Albumin 2.1 L (3.4-5.0) gm/dl - Exam Exam Narrative: Bilateral lower extremities neurovascular intact, exam stable and unchanged Abdomen: Distended, soft, nontender Constitutional: Present: Alert Assessment/Plan Plan Narrative: He continues to have bowel issues. He states he is passing gas. He has an NG tube down at this time. I would strongly encourage him to continue with therapy and get out of bed as this can help with his bowel activity. It appears again that the majority of his symptoms are related to his ileus and urinary retention. - Problems/Diagnosis (1) Status post total left knee replacement Problem: Chronic (2) Status post total right knee replacement Problem: Chronic
[2019-11-01] MEDS: TAMSULOSIN HCL 0.4 MG CAP.SR.24H PO SCH (18:55)
[2019-11-01] MEDS: ACETAMINOPHEN 500 MG TABLET PO PRN (21:45)
[2019-11-01] MEDS: SENNOSIDES/DOCUSATE SODIUM 1 TAB TABLET PO SCH (21:47)
[2019-11-02] MEDS: ACETAMINOPHEN 500 MG TABLET PO PRN ×2 (05:43→14:05)
[2019-11-02 06:44] LABS: Hematocrit 27.7 % (42.0-52.0); Hemoglobin 8.8 gm/dL (13.5-18.0); Mean Cell Volume 94.9 fl (78-100); Mean Corpuscular Hemoglobin 30.1 pg (27-31); Mean Corpuscular Hgb Conc 31.8 g/dl (32-36); Mean Platelet Volume 8.5 fl (8-11.3); Neutrophil # 8.9 K/mm3 (1.3-6.0); Neutrophil % 75.8 % (42-75.0); Platelet Count 307 K/mm3 (150-450); Red Blood Count 2.92 M/mm3 (4.7-6.0); Red Cell Distribution Width 14.9 % (11.5-14.0); White Blood Count 11.8 K/mm3 (4.0-10.5)
[2019-11-02 06:57] LABS: Albumin * 2.1 gm/dl (3.4-5.0); Anion Gap 9.3 mmol/L (6.8-13.8); BUN/Creatinine Ratio 39.8 (9.0-21.6); Bilirubin, Total 1.5 mg/dL (0.0-1.1); Ca. Corrected For Albumin 9.4 mg/dL (8.4-10.2); Calcium * 8.2 mg/dL (7.9-10.9); Carbon Dioxide 33.3 mmol/L (24-32.6); Potassium 3.6 mmol/L (3.4-4.6); Total Protein 6.4 gm/dL (6.2-8.2)
[2019-11-02] MEDS: CEFEPIME HCL 1 GM in DEXTROSE 5 % IN WATER 100 ML IV SCH ×2 (07:56)
[2019-11-02] MEDS: MAGNESIUM HYDROXIDE 30 ML UDC PO SCH ×2 (08:01→20:28)
[2019-11-02] MEDS: BISACODYL 10 MG SUPP.RECT RC SCH (08:01)
[2019-11-02] MEDS: FUROSEMIDE 10 MG/ML VIAL IV SCH ×2 (08:01→20:28)
[2019-11-02] MEDS: BISACODYL 5 MG TABLET.DR PO SCH (08:01)
[2019-11-02] MEDS: ALLOPURINOL 300 MG TABLET PO SCH (08:02)
[2019-11-02] MEDS: METOPROLOL SUCCINATE 100 MG TABLET.SA PO SCH ×2 (08:02→20:29)
[2019-11-02] MEDS: MULTIVITAMINS 1 CAP CAPSULE PO SCH (08:02)
[2019-11-02] MEDS: BETA-CAROTENE(A) W-C , E/MIN 1 TAB TABLET PO SCH ×2 (08:02→20:28)
--- NOTE | 2019-11-02 09:50 | PN ---
Subjective - Date and Time Seen Date: 11/02/19 Time: 09:50 Objective - Review of Systems Generalized/Overall Review: Reports: Weakness EENTM: Reports: No Symptoms Reported Respiratory: Reports: Shortness of Breath Cardiac: Reports: Edema. Denies: Chest Pain Abdominal: Reports: Abdominal Pain. Denies: Nausea, Vomiting Genitourinary Symptoms: Reports: No Symptoms Reported Musculoskeletal Complaints: Reports: Joint Pain - BL KNEE Neurological: Reports: Weakness Skin: Reports: No Symptoms Reported Endocrine: Reports: No Symptoms Reported - Vitals Vitals: Last Vital Signs Temp 36.1 C 11/02/19 07:25 Pulse 87 11/02/19 08:02 Resp 12 11/02/19 07:25 BP 117/60 11/02/19 08:02 Pulse Ox 96 11/02/19 07:25 - Abnormal Lab Findings Abnormal Lab Findings: Abnormal Lab Results 11/02/19 11/02/19 Range/Units 06:37 06:37 WBC 11.8 H (4.0-10.5) K/mm3 RBC 2.92 L (4.7-6.0) M/mm3 Hgb 8.8 L (13.5-18.0) gm/dL Hct 27.7 L (42.0-52.0) % MCHC 31.8 L (32-36) g/dl RDW 14.9 H (11.5-14.0) % Immature Gran % (Auto) 3.80 H (0.001-0.429) % Immature Gran # (Auto) 0.45 H (0.000-0.0310) K/mm3 Neutrophils % 75.8 H (42-75.0) % Lymphocytes % 8.9 L (20-51) % Eosinophils % 4.3 H (0.0-3.0) % Neutrophils # 8.9 H (1.3-6.0) K/mm3 Lymphocytes # 1.05 L (1.5-3.5) k/mm3 Carbon Dioxide 33.3 H (24-32.6) mmol/L BUN 98 H (6-23) mg/dL Creatinine 2.46 H D (0.4-1.4) mg/dL Est GFR (Non-Af Amer) 27 L D (60-130) mL/min BUN/Creatinine Ratio 39.8 H (9.0-21.6) Random Glucose 131 H (70-110) mg/dL Total Bilirubin 1.5 H (0.0-1.1) mg/dL AST 69 H (0-48) U/L Albumin 2.1 L (3.4-5.0) gm/dl - EKG/Xray Findings EKG: atrial fibrillation EKG read: Reviewed by me XRAY: chest Interpretation: Reviewed by me - Exam Constitutional: Present: Alert, Oriented x3, Cooperative, No distress ENT Exam: Present: hearing grossly normal Neck: Present: full range of motion Respiratory: Present: crackles Cardiovascular/Chest: Present: normal peripheral pulses, JVD, irregularly irregular Abdomen: Present: Normal bowel sounds, distended /Rectal: Present: Other Extremity: Present: lower extremity edema, other - SCROTAL EDEMA Neurologic: Present: alert, oriented x 3 Appearance: Present: appropriate appearance, appropriate insight Eye contact: Present: cooperative, good eye contact Thoughts: Present: normal thought pattern Assessment/Plan Plan Narrative: Assessment/Plan - Colonic Ileus: - D/C Morphine - On stool softener - Cont. as Dr. Epperson Recommendations -PNA: - Continue Cefepime - Leukocytosis trending down -BUN elevated concerning for UGI bleed: - Continue to Hold eliquis - Continuing SCDS - NPO -CHF: -Switched to lasix 20 mg IV BID - Adequate UOP - Continue Scrota Support -IGLESIA: - Continue to Hold Cozaar - Continue to monitor -A-fib RVR: - Now rate controlled with Increasing Metoprolol to 100 mg PO BID - Not to administer with Systolic BP < 90 mm Hg Disposition: - Continue to monitor and diurese - Cont PT/OT - Appreciate recommendations from General Surgeon and Ortho - Problems/Diagnosis (1) Acute congestive heart failure Problem: Acute Qualifiers: Heart failure type: diastolic Qualified Code(s): I50.31 - Acute diastolic (congestive) heart failure (2) Hospital acquired PNA Problem: Acute (3) Anasarca Problem: Acute (4) Urinary retention Problem: Acute (5) Atrial fibrillation with RVR Problem: Acute (6) Atelectasis, bilateral Problem: Acute
[2019-11-02] MEDS: TAMSULOSIN HCL 0.4 MG CAP.SR.24H PO SCH (17:57)
[2019-11-02] MEDS: SENNOSIDES/DOCUSATE SODIUM 1 TAB TABLET PO SCH (20:28)
[2019-11-03 05:11] LABS: Hematocrit 25.9 % (42.0-52.0); Hemoglobin 8.4 gm/dL (13.5-18.0); Mean Cell Volume 95.2 fl (78-100); Mean Corpuscular Hemoglobin 30.9 pg (27-31); Mean Corpuscular Hgb Conc 32.4 g/dl (32-36); Mean Platelet Volume 8.2 fl (8-11.3); Neutrophil # 8.7 K/mm3 (1.3-6.0); Neutrophil % 77.4 % (42-75.0); Platelet Count 307 K/mm3 (150-450); Red Blood Count 2.72 M/mm3 (4.7-6.0); Red Cell Distribution Width 14.9 % (11.5-14.0); White Blood Count 11.3 K/mm3 (4.0-10.5)
[2019-11-03 05:32] LABS: Albumin * 2.2 gm/dl (3.4-5.0); Anion Gap 10.1 mmol/L (6.8-13.8); BUN/Creatinine Ratio 43.5 (9.0-21.6); Bilirubin, Total 1.6 mg/dL (0.0-1.1); Ca. Corrected For Albumin 9.2 mg/dL (8.4-10.2); Calcium * 8.1 mg/dL (7.9-10.9); Carbon Dioxide 32.2 mmol/L (24-32.6); Potassium 3.3 mmol/L (3.4-4.6)
[2019-11-03] MEDS: CEFEPIME HCL 1 GM in DEXTROSE 5 % IN WATER 100 ML IV SCH ×2 (08:35)
[2019-11-03] MEDS: MULTIVITAMINS 1 CAP CAPSULE PO SCH (08:36)
[2019-11-03] MEDS: APIXABAN 2.5 MG TABLET PO SCH (08:36)
[2019-11-03] MEDS: METOPROLOL SUCCINATE 100 MG TABLET.SA PO SCH ×2 (08:36→20:17)
[2019-11-03] MEDS: HYDROCHLOROTHIAZIDE 25 MG TABLET PO SCH (08:36)
[2019-11-03] MEDS: BETA-CAROTENE(A) W-C , E/MIN 1 TAB TABLET PO SCH ×2 (08:37→20:18)
[2019-11-03] MEDS: ACETAMINOPHEN 500 MG TABLET PO PRN (08:37)
[2019-11-03] MEDS: ALLOPURINOL 300 MG TABLET PO SCH (08:37)
[2019-11-03] MEDS: FUROSEMIDE 10 MG/ML VIAL IV SCH (08:38)
[2019-11-03] MEDS: BISACODYL 10 MG SUPP.RECT RC SCH (08:38)
[2019-11-03] MEDS: MAGNESIUM HYDROXIDE 30 ML UDC PO SCH (08:39)
[2019-11-03] MEDS: BISACODYL 5 MG TABLET.DR PO SCH (08:46)
--- NOTE | 2019-11-03 10:46 | PN ---
Subjective - Date and Time Seen Date: 11/03/19 Time: 10:46 Subjective Narrative: No acute events overnight. This morning pain was rated 8/10, on currently on tylenol 1gm every 8 hours PRN, pain not well controlled. Patient states has had a total of 5 loose/watery BM. Completed PT and states SOB with exertion. Tolerating full liquids. No CP. No F/C. Afebrile. VSS Discussed results and further management. at bedside and patient voice understanding. Objective - Review of Systems Generalized/Overall Review: Reports: Weakness. Denies: Chills, Fever, Fatigue EENTM: Reports: No Symptoms Reported Respiratory: Reports: Shortness of Breath - with exertion, Orthopnea. Denies: Cough, Wheezing Cardiac: Reports: Edema. Denies: Chest Pain Abdominal: Reports: Diarrhea. Denies: Nausea, Vomiting, Abdominal Pain Genitourinary Symptoms: Denies: Frequency, Retention Musculoskeletal Complaints: Reports: Joint Pain - BL Knee, Joint Swelling - BL Knee Neurological: Reports: Weakness Skin: Denies: Dryness Endocrine: Reports: No Symptoms Reported - Vitals Vitals: Last Vital Signs Temp 36.9 C 11/03/19 07:48 Pulse 97 11/03/19 08:38 Resp 12 11/03/19 07:48 BP 122/55 11/03/19 08:38 Pulse Ox 100 11/03/19 07:48 - Abnormal Lab Findings Abnormal Lab Findings: Abnormal Lab Results 11/01/19 11/03/19 11/03/19 Range/Units 06:00 05:05 05:05 WBC 11.3 H (4.0-10.5) K/mm3 RBC 2.72 L (4.7-6.0) M/mm3 Hgb 8.4 L (13.5-18.0) gm/dL Hct 25.9 L (42.0-52.0) % RDW 14.9 H (11.5-14.0) % Immature Gran % (Auto) 3.30 H (0.001-0.429) % Immature Gran # (Auto) 0.37 H (0.000-0.0310) K/mm3 Neutrophils % 77.4 H (42-75.0) % Lymphocytes % 7.4 L (20-51) % Eosinophils % 4.6 H (0.0-3.0) % Neutrophils # 8.7 H (1.3-6.0) K/mm3 Lymphocytes # 0.83 L (1.5-3.5) k/mm3 Potassium 3.3 L (3.4-4.6) mmol/L BUN 83 H (6-23) mg/dL Creatinine 1.91 H D (0.4-1.4) mg/dL Est GFR (Non-Af Amer) 36 L D (60-130) mL/min BUN/Creatinine Ratio 43.5 H (9.0-21.6) Random Glucose 125 H (70-110) mg/dL Serum Osmolality 308 H mOsm/kg Total Bilirubin 1.6 H (0.0-1.1) mg/dL AST 56 H (0-48) U/L Total Protein 6.0 L (6.2-8.2) gm/dL Albumin 2.2 L (3.4-5.0) gm/dl - EKG/Xray Findings EKG: atrial fibrillation EKG read: Interp. by me - rate controlled XRAY: chest Interpretation: Reviewed by me - Exam Constitutional: Present: Alert, Oriented x3, Cooperative, Well developed, Well nourished, No distress ENT Exam: Present: hard of hearing - mild Neck: Present: non-tender, full range of motion, supple Respiratory: Present: normal breath sounds, no respiratory distress, no accessory muscle use, crackles - Left lower lobe, No rales, No wheezing Cardiovascular/Chest: Present: normal peripheral pulses, no chest tenderness, diastolic murmur, irregularly irregular, other, edema - BL LE Pitting Edema 1+ Scrotal edema improving Abdomen: Present: Normal bowel sounds, soft, nontender, nondistended Extremity: Present: normal capillary refill, lower extremity edema - 1+ pitting edema, leg pain - bl knees, swelling - knees BL scrotum Skin Exam: Present: normal color, warm/dry Neurologic: Present: alert, oriented x 3 Appearance: Present: appropriate appearance, appropriate insight Eye contact: Present: cooperative, good eye contact Thoughts: Present: normal thought pattern, no apparent hallucination Assessment/Plan Plan Narrative: Assessment/Plan 79 year old M admitted for Colonic Ileus, Cardiorenal Syndrome and Hospital Acquired PNA. 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 Patient did well post-op and discharged to [facility] ([facility] Acutely decompensated whilst in SNF. BUN elevated concerning for UGI bleed: - BUN trending down (108->83) - Protonix 40 mg 1V q24h and Carafate 1 gm PO BID - Continue to Hold eliquis - Continue SCDs Normocytic Anemia - Trending down slowly - H/H 8.4/25.9 - Will transfuse once Hgb < 8.0 - Type and Screen pending Hospital Acquired PNA: Treating with one IV antibiotic versus combination regimen due to poor renal function, having a single kidney and cardiac problems. Recommended combination antibiotics may result in a poor outcome. - Leukocytosis trending down - CrCl improved, will increase Cefepime from 1 gm Q24H IV to 2gm Q12H. Day #4/ - Incentive Spirometry Q1H whilst awake for atelectasis Acute on Chronic CHF: - Diuresing well. Adequate UOP - Wt today: 101.6 decrease from 106 on admission - Due to multiple water stools, will decrease Lasix from 20 mg IV BID to 10 mg IV daily - Continue scrotum support IGLESIA: - Improving GFR: 18->36 and Cr:3.52-> 1.91 - Continue to Hold Cozaar - Continue to monitor Hypokalemia: - KCl 20 meq PO QD. Colonic Ileus: Resolved - Opioids to be last resort for pain control as this may likely be the etiology of colonic ileus - Pain control with Tylenol 1gm q8h and Tramadol 50 mg Q8H. Alternate every 4 hours - Currently having loose watery stools - Hold all stool softeners, bulk forming or stimulant laxatives - Advance to full liquid diet -A-fib RVR: Resolved - Continue Metoprolol to 100 mg PO BID - Not to administer with Systolic BP < 90 mm Hg FEN: Full liquids. 2400 ml /24 hour fluid restriction, not including diet DVT PPX: SCDs CODE STATUS: Full Code Disposition: - Continue diurese - Cont PT/OT - Pending PT progress will evaluate to d/c martinez within 24-48 hours - Monitor pain control - Monitor H/H - Keep low threshold to transfuse with comorbidities and SOB with exertion acutely worsens - Appreciate recommendations from General Surgeon, Ortho and PT/OT. - Anticipate discharge within 48-72 hours. - Problems/Diagnosis (1) Upper GI bleed Problem: Suspected (2) Normocytic anemia due to blood loss Problem: Acute (3) Hospital acquired PNA Problem: Acute (4) Acute congestive heart failure Problem: Acute Qualifiers: Heart failure type: diastolic Qualified Code(s): I50.31 - Acute diastolic (congestive) heart failure (5) Acute renal failure Problem: Acute Qualifiers: Acute renal failure type: unspecified Qualified Code(s): N17.9 - Acute kidney failure, unspecified (6) Atelectasis, bilateral Problem: Acute (7) Anasarca Problem: Resolved (8) Urinary retention Problem: Resolved (9) Atrial fibrillation with RVR Problem: Resolved
[2019-11-03] MEDS: POTASSIUM CHLORIDE 20 MEQ TABLET.SA PO SCH (11:06)
[2019-11-03] MEDS: traMADol HCL 50 MG TABLET PO SCH ×2 (12:58→18:55)
[2019-11-03] MEDS: PANTOPRAZOLE SODIUM 40 MG in NORMAL SALINE 100 ML IV SCH (13:10)
[2019-11-03] MEDS: SUCRALFATE 1 G TABLET PO SCH (15:14)
[2019-11-03] MEDS: CEFEPIME HCL 2 GM in DEXTROSE 5 % IN WATER 100 ML IV SCH ×2 (16:13)
[2019-11-03] MEDS: ACETAMINOPHEN 500 MG TABLET PO SCH (16:20)
[2019-11-03] MEDS: TAMSULOSIN HCL 0.4 MG CAP.SR.24H PO SCH (19:06)
[2019-11-04] MEDS: ACETAMINOPHEN 500 MG TABLET PO SCH ×3 (01:01→16:45)
[2019-11-04] MEDS: traMADol HCL 50 MG TABLET PO SCH ×3 (02:56→20:08)
[2019-11-04] MEDS: SUCRALFATE 1 G TABLET PO SCH ×2 (05:24→16:44)
[2019-11-04] MEDS: CEFEPIME HCL 2 GM in DEXTROSE 5 % IN WATER 100 ML IV SCH ×4 (05:24→16:44)
[2019-11-04 05:53] LABS: Hematocrit 26.8 % (42.0-52.0); Hemoglobin 8.6 gm/dL (13.5-18.0); Mean Cell Volume 95.4 fl (78-100); Mean Corpuscular Hemoglobin 30.6 pg (27-31); Mean Corpuscular Hgb Conc 32.1 g/dl (32-36); Mean Platelet Volume 8.3 fl (8-11.3); Neutrophil # 8.5 K/mm3 (1.3-6.0); Neutrophil % 76.6 % (42-75.0); Platelet Count 313 K/mm3 (150-450); Red Blood Count 2.81 M/mm3 (4.7-6.0); Red Cell Distribution Width 14.9 % (11.5-14.0); White Blood Count 11.1 K/mm3 (4.0-10.5)
[2019-11-04 06:10] LABS: Albumin * 2.4 gm/dl (3.4-5.0); BUN/Creatinine Ratio 38.3 (9.0-21.6); Bilirubin, Total 1.4 mg/dL (0.0-1.1); Ca. Corrected For Albumin 9.3 mg/dL (8.4-10.2); Calcium * 8.3 mg/dL (7.9-10.9); Carbon Dioxide 32.5 mmol/L (24-32.6); Potassium 3.5 mmol/L (3.4-4.6); Total Protein 6.6 gm/dL (6.2-8.2)
[2019-11-04] MEDS: LOSARTAN POTASSIUM 50 MG TABLET PO SCH (08:29)
[2019-11-04] MEDS: BETA-CAROTENE(A) W-C , E/MIN 1 TAB TABLET PO SCH ×2 (08:29→20:11)
[2019-11-04] MEDS: HYDROCHLOROTHIAZIDE 25 MG TABLET PO SCH (08:29)
[2019-11-04] MEDS: MULTIVITAMINS 1 CAP CAPSULE PO SCH (08:29)
[2019-11-04] MEDS: ALLOPURINOL 300 MG TABLET PO SCH (08:30)
[2019-11-04] MEDS: POTASSIUM CHLORIDE 20 MEQ TABLET.SA PO SCH (08:30)
[2019-11-04] MEDS: METOPROLOL SUCCINATE 100 MG TABLET.SA PO SCH ×2 (08:31→20:11)
[2019-11-04] MEDS ORDERED: FUROSEMIDE 10 MG/ML VIAL IV SCH (09:00)
--- NOTE | 2019-11-04 10:29 | PN ---
Subjective - Date and Time Seen Date: 11/04/19 Time: 10:28 Subjective Narrative: No acute events overnight. Doing well on PT Tolerating full liquid diet. +BM Denies SOB, CP, F/C. Objective - Review of Systems Generalized/Overall Review: Reports: Weakness. Denies: Chills, Fever, Fatigue EENTM: Reports: No Symptoms Reported Respiratory: Reports: Shortness of Breath, Orthopnea. Denies: Cough, Wheezing Cardiac: Reports: Edema. Denies: Chest Pain Abdominal: Reports: Abdominal Pain. Denies: Nausea, Vomiting, Constipation, Diarrhea Genitourinary Symptoms: Reports: Retention Musculoskeletal Complaints: Reports: Joint Pain, Joint Swelling - bl knees Neurological: Reports: Weakness - BL LE Skin: Reports: Dryness Endocrine: Reports: Increased Hunger - DUE TO FULL LIQUID DIET - Vitals Vitals: Last Vital Signs Temp 36.3 C 11/04/19 09:52 Pulse 76 11/04/19 09:52 Resp 20 11/04/19 09:52 BP 124/54 11/04/19 09:52 Pulse Ox 96 11/04/19 09:52 - Abnormal Lab Findings Abnormal Lab Findings: Abnormal Lab Results 11/04/19 11/04/19 Range/Units 05:45 05:45 WBC 11.1 H (4.0-10.5) K/mm3 RBC 2.81 L (4.7-6.0) M/mm3 Hgb 8.6 L (13.5-18.0) gm/dL Hct 26.8 L (42.0-52.0) % RDW 14.9 H (11.5-14.0) % Immature Gran % (Auto) 3.50 H (0.001-0.429) % Immature Gran # (Auto) 0.39 H (0.000-0.0310) K/mm3 Neutrophils % 76.6 H (42-75.0) % Lymphocytes % 8.3 L (20-51) % Eosinophils % 4.3 H (0.0-3.0) % Neutrophils # 8.5 H (1.3-6.0) K/mm3 Lymphocytes # 0.92 L (1.5-3.5) k/mm3 BUN 57 H (6-23) mg/dL Creatinine 1.49 H D (0.4-1.4) mg/dL Est GFR (Non-Af Amer) 48 L D (60-130) mL/min BUN/Creatinine Ratio 38.3 H (9.0-21.6) Random Glucose 132 H (70-110) mg/dL Total Bilirubin 1.4 H (0.0-1.1) mg/dL AST 59 H (0-48) U/L Albumin 2.4 L (3.4-5.0) gm/dl - EKG/Xray Findings EKG: atrial fibrillation EKG read: Interp. by me - ATRIAL FIBRILATION WITH RVR last ekg 10/31 Now rate controlled after optimizing dose of metoprolol XRAY: chest Interpretation: Interp. by me - significant improvement in comparison to CXR completed on 10/31 Pulmonary vasculature less prominent, Cardiomegaly. Cannot appreciate infiltrate since its a single view. Infiltrate appreciated on CT chest, Reviewed by me - No acute cardiopulmonary process - Exam Constitutional: Present: Alert, Oriented x3, Cooperative, Well developed, Well nourished, No distress, Elderly ENT Exam: Present: hard of hearing - mild Neck: Present: non-tender, full range of motion, supple Breasts: Present: Exam deferred Respiratory: Present: lungs clear, normal breath sounds, no respiratory distress, no accessory muscle use, respiratory distress, crackles, rales - LL Lobe Cardiovascular/Chest: Present: normal peripheral pulses, no chest tenderness, no JVD, systolic murmur, irregularly irregular, edema - of LE BL, improving Abdomen: Present: Normal bowel sounds, soft, nontender, nondistended, no rebound tenderness /Rectal: Present: Other - scrotal swelling resolved Extremity: Present: lower extremity edema - BL LE but improving, leg pain - bl knee pain. pain well controlled Skin Exam: Present: normal color, warm/dry Neurologic: Present: alert, oriented x 3 Appearance: Present: appropriate appearance, appropriate insight, neat Eye contact: Present: cooperative, good eye contact, normal speech Thoughts: Present: normal thought pattern Assessment/Plan Plan Narrative: Assessment/Plan 79 year old M admitted for Colonic Ileus, Cardiorenal Syndrome and Hospital Acquired PNA. Patient is status post total knee replacement 10/22 and 10/24. Patient did well post-op and discharged to [facility] (SNF). Acutely decompensated whilst in SNF. UGI bleed suspected due to elevated BUN and Hgb trending down - BUN trending down: 47 - Continue Protonix 40 mg 1V q24h, transition to PO in AM - Continue Carafate 1 gm PO BID - Resume eliquis - d/c SCDs Normocytic Anemia - Stable - Hgb: 8.6 - Continue to monitor Hospital Acquired PNA: Treating with one IV antibiotic versus combination regimen due to poor renal function, having a single kidney and cardiac problems. Recommended combination antibiotics may result in a poor outcome. - Leukocytosis resolving - Continue Cefepime 2gm IV Q12H. Day #5/7, if CrCl becomes >60 will switch to 2gm Q8H - Incentive Spirometry Q1H whilst awake for atelectasis IGLESIA: - Improving GFR: 18->47 and Cr:3.52-> 1.49 - Continue to Hold Cozar - Continue to monitor Colonic Ileus: Resolved - Opioids to be last resort for pain control as this may likely be the etiology of colonic ileus - Pain control with Tylenol 1gm q8h and Tramadol 50 mg Q8H. Alternate every 4 hours - Resume stool softener at bedtime - Advance to Heart Healthy Diet -A-fib RVR: Resolved - Continue Metoprolol to 100 mg PO BID - Not to administer with Systolic BP < 90 mm Hg Acute on Chronic CHF: Resolved - Diuresed well. Adequate UOP - Wt today: 97.4 kg decrease from 106.9 on admission - Switch to lasix 20 mg PO QD. Hypokalemia: Resolved - Continue KCl 20 meq PO QD. FEN: Advance to Heart Healthy Diet. 1800 ml /24 hour fluid restriction. Not including medication DVT PPX: Eliquis CODE STATUS: Full Code Disposition: - Cont PT/OT - Doing well with PT, will D/C martinez today - Monitor H/H and BUN - Transition to PO Protonix in AM - Resume Cozaar if IGLESIA has resolved - Appreciate recommendations from General Surgeon, Ortho and PT/OT. - Anticipate discharge to the [place] within 24-48 hours. - Problems/Diagnosis (1) Upper GI bleed Problem: Suspected (2) Normocytic anemia due to blood loss Problem: Acute (3) Hospital acquired PNA Problem: Acute (4) Acute congestive heart failure Problem: Acute Qualifiers: Heart failure type: diastolic Qualified Code(s): I50.31 - Acute diastolic (congestive) heart failure (5) Acute renal failure Problem: Acute Qualifiers: Acute renal failure type: unspecified Qualified Code(s): N17.9 - Acute kidney failure, unspecified (6) Atelectasis, bilateral Problem: Acute (7) Anasarca Problem: Resolved (8) Urinary retention Problem: Resolved (9) Atrial fibrillation with RVR Problem: Resolved
[2019-11-04] MEDS ORDERED: FUROSEMIDE 20 MG TABLET PO SCH (11:00)
[2019-11-04] MEDS: SENNOSIDES/DOCUSATE SODIUM 1 TAB TABLET PO SCH (12:16)
[2019-11-04] MEDS: APIXABAN 2.5 MG TABLET PO SCH ×2 (12:16→12:53)
[2019-11-04] MEDS: PANTOPRAZOLE SODIUM 40 MG in NORMAL SALINE 100 ML IV SCH (12:53)
[2019-11-04] MEDS: BACLOFEN 10 MG TABLET PO SCH ×2 (13:20→20:10)
[2019-11-04] MEDS: SIMETHICONE 80 MG TAB.CHEW PO SCH ×3 (13:21→20:11)
[2019-11-04] MEDS: TAMSULOSIN HCL 0.4 MG CAP.SR.24H PO SCH (20:09)
[2019-11-05] MEDS: ACETAMINOPHEN 500 MG TABLET PO SCH ×2 (01:12→08:48)
[2019-11-05] MEDS: traMADol HCL 50 MG TABLET PO SCH ×2 (03:24→10:57)
[2019-11-05] MEDS: CEFEPIME HCL 2 GM in DEXTROSE 5 % IN WATER 100 ML IV SCH ×2 (05:17)
[2019-11-05] MEDS: SUCRALFATE 1 G TABLET PO SCH (05:18)
[2019-11-05 05:48] LABS: Hematocrit 27.1 % (42.0-52.0); Hemoglobin 8.5 gm/dL (13.5-18.0); Mean Cell Volume 95.4 fl (78-100); Mean Corpuscular Hemoglobin 29.9 pg (27-31); Mean Corpuscular Hgb Conc 31.4 g/dl (32-36); Neutrophil % 72.5 % (42-75.0); Platelet Count 347 K/mm3 (150-450); Red Blood Count 2.84 M/mm3 (4.7-6.0); White Blood Count 11.1 K/mm3 (4.0-10.5)
[2019-11-05 06:00] LABS: Albumin * 2.3 gm/dl (3.4-5.0); Anion Gap 11.5 mmol/L (6.8-13.8); BUN/Creatinine Ratio 31.3 (9.0-21.6); Bilirubin, Total 1.2 mg/dL (0.0-1.1); Ca. Corrected For Albumin 9.2 mg/dL (8.4-10.2); Calcium * 8.2 mg/dL (7.9-10.9); Carbon Dioxide 30.8 mmol/L (24-32.6); Potassium 3.3 mmol/L (3.4-4.6); Total Protein 6.2 gm/dL (6.2-8.2)
--- NOTE | 2019-11-05 08:22 | DS ---
(1) Upper GI bleed Problem: Suspected (2) Normocytic anemia due to blood loss Problem: Acute (3) Hospital acquired PNA Problem: Acute (4) Acute congestive heart failure Problem: Acute Qualifiers: Heart failure type: diastolic Qualified Code(s): I50.31 - Acute diastolic (congestive) heart failure (5) Acute renal failure Problem: Acute Qualifiers: Acute renal failure type: unspecified Qualified Code(s): N17.9 - Acute kidney failure, unspecified (6) Atelectasis, bilateral Problem: Acute (7) Anasarca Problem: Resolved (8) Urinary retention Problem: Resolved (9) Atrial fibrillation with RVR Problem: Resolved Date of Discharge:: 11/05/19 Hospital Course: 79 year Old M s/p BL knee replacement on 10/22/19.presents with PNHX of HTN, Chronic Kidney Disease (One kidney), Congestive Heart Failure, Chronic Atrial-fibrillation, Atherosclerosis of aorta, and Chronic Venous Stasis and s/p varicose vein stripping, traumatic subarachnoid hematoma, presented to [facility] ER from [facility] with concerns black emesis, hypoxemia and acute decompensation. On arrival, patient is on3L NC with SpO2 at 92 %, tachycardic and tacyhpneic, afebrile, anuria and no BM for > 3 days. Due to his presentation urgently evaluated for Cardiac etiology, SBO, UGI bleed, Sepsis and PE. Labs and imaging obtained were consistent with leukocytosis, BNP 2 weeks prior to admission was 2626, which increased to 7000. Stool occult positive. CXR c oncerning for fluid overload, KUB followed up by CT abd/pelvis with contrast cw large bowel distention due to gas, no concern for SBO. CT chest consistent with possible infiltrate if left lower lobe. PE significant for distended abdomen and Ansarca. Due to anuria, martinez catheter place and had > 800 ml of UOP. Last Echo on 10/05/19: Left atrial cavity is severely dilated with EF of 54%, right atrial cavity is mildly dilated with mild aortic valve thickening with mild calcification,no evidence of aortic valve stenosis, mild mitral lyndsey regurgitation and trace tricuspid valve regurgitation, however structurally normal. Admitted for Colonic Ileus, UGI bleed, Acute CHF, Acute Renal Failure, Afib RVR and HAP. Consulted Dr. Mahmood (General Surgery) for possible SBO. NG tube placed to intermittent suction and made NPO. Dr Mahmood consulted for higher level of care. Acute colonic ileus resolved within 48 hours. ADA tolerated and patient did well. Eliquis held, started on Protonix and Carafate, and Hgb remained stable. No further concern of UGI bleed. Resumed Eliquis. Started on Vanc x 1 day due to concern for sepsis along with Cefepime 1 gm Q24H (renally dosed). Fluid resuscitated, lactic < 1.5, stopped fluid resuscitation, followed by diuresis with IV Bumex transitioned to Lasix. Lost 19.8 lbs. Weaned off oxygen. Ansarca resolved. As CrCl improved increased dose of Cefepime to 2 gm q12h, will be discharged with dose of cefepime (total of 7 day treatment). Metoprolol increased to 100 mg PO BID, and rate now well controlled. Dr. Self (Orthopedics) consulted for recommendations post-op for BL knee replacement. Tolerated PT/OT well. Will refer to Urology for urinary retention, failed to urinate without martinez catheter. Referral will be completed outpatient. Patient is stable for discharge to SNF. Procedures Performed: see notes below List Procedures: NG Tube placement XR obtained to confirm placement. Care Plan Goals: Continue PT/OT Refer to Urology for Urinary Retention concerning for Neurogenic Bladder Plan of Treatment: - Complete Cefepime IV 2 GM x 3 Doses - Continue Metoprolol 100 gm PO BID for A-fib RVR - Repeat CBC, CMP in 11/05 and 11/06 - Continue protonix 40 mg daily - Carafate 1 gm po bid x 1 month - Continue Lasix 10 mg PO QD and Potassium replacement - No opioids for pain management - Continue stool softener at bedtime and symethicone BID Assessment: Colonic Ileus, UGI bleed, Acute CHF, Acute Renal Failure, Afib RVR and HAP. Results and Findings: Pending Mircobiology Results 10/31/19 07:45 Blood Blood Culture - Preliminary NO GROWTH AFTER 48 HOURS Lab Pending Results 10/30/19 18:45: WBC 11.4 H, RBC 3.04 L, Hgb 9.4 L, Hct 29.3 L, MCV 96.4, MCH 30.9, MCHC 32.1, RDW 14.7 H, Plt Count 235, MPV 8.8, Immature Gran % (Auto) 2.50 H, Immature Gran # (Auto) 0.28 H, Neutrophils % 80.3 H, Lymphocytes % 5.6 L, Monocytes % 9.8 H, Eosinophils % 1.4, Basophils % 0.4, Nucleated RBC % 0.0, [place] trophils # 9.2 H, Lymphocytes # 0.64 L, Monocytes # 1.1 H, Eosinophils # 0.2, Absolute Basophils 0.1 10/30/19 18:45: PT 12.1 H, INR (Anticoag Therapy) 1.23 H 10/30/19 18:45: Sodium 131 L, Plasma Sodium 132, Potassium 4.6, Chloride 95 L, Carbon Dioxide 28.7, Anion Gap 11.9, BUN 74 H D, Creatinine 3.61 H D, Est GFR (Non-Af Amer) 17 L D, BUN/Creatinine Ratio 20.5, Random Glucose 160 H, Calcium 8.0, Calcium Adj for Albumin 9.1, Total Bilirubin 1.7 H, AST 32, ALT 22, Alkaline Phosphatase 89, Total Protein 6.2, Albumin 2.2 L, Amylase 26, Lipase 69 L 10/30/19 18:45: PTT (Zarina) 38.6 H 10/30/19 20:26: Gastric Occult Blood Positive H 10/30/19 22:14: Urine Color Yellow, Urine Appearance Clear, Urine pH 5.0, Ur Specific [place] >=1.030, Urine Protein Negative, Urine Glucose (UA) Negative, Urine Ketones 5, Urine Blood Negative, Urine Nitrate Negative, Urine Bilirubin 1 H, Urine Ictotest QNS, Urine Urobilinogen Normal, Ur Leukocyte Esterase Negative, Urine RBC None seen, Urine WBC 0-5, Ur Epithelial Cells None seen, Urine Bacteria Trace, Urine Culture Comments No culture indicated 10/31/19 05:30: WBC 14.0 H D, RBC 2.89 L, Hgb 8.9 L, Hct 27.6 L, MCV 95.5, MCH 30.8, MCHC 32.2, RDW 14.7 H, Plt Count 224, MPV 8.2, Immature Gran % (Auto) 2.40 H, Immature Gran # (Auto) 0.34 H, Neutrophils % 85.9 H, Lymphocytes % 3.8 L, Monocytes % 7.1, Eosinophils % 0.6, Basophils % 0.2, Nucleated RBC % 0.0, Neutrophils # 12.0 H, Lymphocytes # 0.53 L, Monocytes # 1.0, Eosinophils # 0.1, Absolute Basophils 0.0 10/31/19 05:30: Sodium 132, Plasma Sodium 133, Potassium 4.6, Chloride 96 L, Carbon Dioxide 28.1, Anion Gap 12.5, BUN 86 H, Creatinine 3.25 H, Est GFR (Non- Af Amer) 20 L, BUN/Creatinine Ratio 26.5 H, Random Glucose 153 H, Calcium 7.8 L, Calcium Adj for Albumin 9.2, Total Bilirubin 2.0 H, AST 28, ALT 19, Alkaline Phosphatase 74, Creatine Kinase 156, CK-MB (CK-2) 2.4, CK-MB (CK-2) Rel Index 1.5, Troponin I 0.023, C-Reactive Prot, Quant 26.6 H, Total Protein 5.7 L, Albumin 1.9 L 10/31/19 05:30: Lactic Acid, Venous 1.2 10/31/19 06:49: Creatine Kinase 167, CK-MB (CK-2) 2.5, CK-MB (CK-2) Rel Index 1.5, Troponin I 0.025, B-Natriuretic Peptide 7397 H 10/31/19 06:49: Lactic Acid, Venous 1.3 11/01/19 06:00: WBC 12.2 H, RBC 2.86 L, Hgb 8.7 L, Hct 27.0 L, MCV 94.4, MCH 30.4, MCHC 32.2, RDW 14.7 H, Plt Count 268, MPV 8.9, Immature Gran % (Auto) 2.50 H, Immature Gran # (Auto) 0.30 H, Neutrophils % 79.7 H, Lymphocytes % 6.9 L, Monocytes % 6.9, Eosinophils % 3.5 H, Basophils % 0.5, Nucleated RBC % 0.0, Neutrophils # 9.8 H, Lymphocytes # 0.84 L, Monocytes # 0.8, Eosinophils # 0.4, Absolute Basophils 0.1 11/01/19 06:00: Sodium 135, Plasma Sodium 136, Potassium 3.9, Chloride 96 L, Carbon Dioxide 28.4, Anion Gap 14.5 H, BUN 108 H D, Creatinine 3.52 H, Est GFR (Non-Af Amer) 18 L, BUN/Creatinine Ratio 30.7 H, Random Glucose 141 H, Calcium 8.0, Calcium Adj for Albumin 9.2, Total Bilirubin 1.4 H, AST 47, ALT 23, Alkaline Phosphatase 81, Total Protein 6.1 L, Albumin 2.1 L 11/01/19 06:00: Serum Osmolality 308 H 11/01/19 15:15: Ur Random Sodium 64 11/02/19 06:37: WBC 11.8 H, RBC 2.92 L, Hgb 8.8 L, Hct 27.7 L, MCV 94.9, MCH 30.1, MCHC 31.8 L, RDW 14.9 H, Plt Count 307, MPV 8.5, Immature Gran % (Auto) 3.80 H, Immature Gran # (Auto) 0.45 H, Neutrophils % 75.8 H, Lymphocytes % 8.9 L, Monocytes % 6.6, Eosinophils % 4.3 H, Basophils % 0.6, Nucleated RBC % 0.0, Neutrophils # 8.9 H, Lymphocytes # 1.05 L, Monocytes # 0.8, Eosinophils # 0.5, Absolute Basophils 0.1 11/02/19 06:37: Sodium 137, Plasma Sodium 137, Potassium 3.6, Chloride 98, Carbon Dioxide 33.3 H, Anion Gap 9.3, BUN 98 H, Creatinine 2.46 H D, Est GFR (Non-Af Amer) 27 L D, BUN/Creatinine Ratio 39.8 H, Random Glucose 131 H, Calcium 8.2, Calcium Adj for Albumin 9.4, Total Bilirubin 1.5 H, AST 69 H, ALT 29, Alkaline Phosphatase 89, Total Protein 6.4, Albumin 2.1 L 11/02/19 10:00: Urine Osmolality 462 11/03/19 05:05: WBC 11.3 H, RBC 2.72 L, Hgb 8.4 L, Hct 25.9 L, MCV 95.2, MCH 30.9, MCHC 32.4, RDW 14.9 H, Plt Count 307, MPV 8.2, Immature Gran % (Auto) 3.30 H, Immature Gran # (Auto) 0.37 H, Neutrophils % 77.4 H, Lymphocytes % 7.4 L, Monocytes % 6.8, Eosinophils % 4.6 H, Basophils % 0.5, Nucleated RBC % 0.0, Neutrophils # 8.7 H, Lymphocytes # 0.83 L, Monocytes # 0.8, Eosinophils # 0.5, Absolute Basophils 0.1 11/03/19 05:05: Sodium 139, Plasma Sodium 139, Potassium 3.3 L, Chloride 100, Carbon Dioxide 32.2, Anion Gap 10.1, BUN 83 H, Creatinine 1.91 H D, Est GFR (Non-Af Amer) 36 L D, BUN/Creatinine Ratio 43.5 H, Random Glucose 125 H, Calcium 8.1, Calcium Adj for Albumin 9.2, Total Bilirubin 1.6 H, AST 56 H, ALT 31, Alkaline Phosphatase 88, Total Protein 6.0 L, Albumin 2.2 L 11/03/19 13:25: Blood Type O Positive, Antibody Screen Negative 11/04/19 05:45: Sodium 139, Plasma Sodium 140, Potassium 3.5, Chloride 101, Carbon Dioxide 32.5, Anion Gap 9.0, BUN 57 H, Creatinine 1.49 H D, Est GFR (Non- Af Amer) 48 L D, BUN/Creatinine Ratio 38.3 H, Random Glucose 132 H, Calcium 8.3, Calcium Adj for Albumin 9.3, Total Bilirubin 1.4 H, AST 59 H, ALT 38, Alkaline Phosphatase 95, Total Protein 6.6, Albumin 2.4 L 11/04/19 05:45: WBC 11.1 H, RBC 2.81 L, Hgb 8.6 L, Hct 26.8 L, MCV 95.4, MCH 30.6, MCHC 32.1, RDW 14.9 H, Plt Count 313, MPV 8.3, Immature Gran % (Auto) 3.50 H, Immature Gran # (Auto) 0.39 H, Neutrophils % 76.6 H, Lymphocytes % 8.3 L, Monocytes % 6.9, Eosinophils % 4.3 H, Basophils % 0.4, Nucleated RBC % 0.0, Neutrophils # 8.5 H, Lymphocytes # 0.92 L, Monocytes # 0.8, Eosinophils # 0.5, Absolute Basophils 0.1 11/05/19 05:30: WBC 11.1 H, RBC 2.84 L, Hgb 8.5 L, Hct 27.1 L, MCV 95.4, MCH 29.9, MCHC 31.4 L, RDW 15.0 H, Plt Count 347, MPV 9.0, Immature Gran % (Auto) 3.80 H, Immature Gran # (Auto) 0.42 H, Neutrophils % 72.5, Lymphocytes % 9.7 L, Monocytes % 7.8, Eosinophils % 5.6 H, Basophils % 0.6, Nucleated RBC % 0.0, Neutrophils # 8.0 H, Lymphocytes # 1.07 L, Monocytes # 0.9, Eosinophils # 0.6, Absolute Basophils 0.1 11/05/19 05:30: Sodium 139, Plasma Sodium 139, Potassium 3.3 L, Chloride 100, Carbon Dioxide 30.8, Anion Gap 11.5, BUN 45 H, Creatinine 1.44 H, Est GFR (Non- Af Amer) 50 L, BUN/Creatinine Ratio 31.3 H, Random Glucose 118 H, Calcium 8.2, Calcium Adj for Albumin 9.2, Total Bilirubin 1.2 H, AST 52 H, ALT 39, Alkaline Phosphatase 93, Total Protein 6.2, Albumin 2.3 L Discharge Location: [facility] Disposition: SNF Condition: Stable Level of Care: SNF Discharge Activity: Other - As per PT recommendations Discharge Diet: Low salt Residential Therapy: Physical Therapy, Occupation Therapy Referrals: Ilan Jean MD [Primary Care Provider] - One Week (Hospital ER follow up) Consultation Done:: Dr. Mahmood, Dr. Reagan Additional Patient Instructions (free text): Do not use stand assist manas on joint replacement patients. As per Ortho (Dr. Self) recommendations. Complete Home Medications List: Complete Home Medication List: apixaban 2.5 mg tablet 2.5 mg PO BID 10/06/18 acetaminophen 500 mg tablet 1,000 mg PO Q6H PRN tab 12/19/18 allopurinol 300 mg tablet 300 mg PO DAILY #90 tab 09/10/19 hydrochlorothiazide 25 mg tablet 25 mg PO DAILY #90 tab 10/09/19 sildenafil (pulm.hypertension) 20 mg tablet See Rx Instructions .ROUTE .COMPLEX #30 unknown measurement unit code: tablet 10/09/19 Losartan Potassium [Cozaar] 100 mg PO DAILY 10/22/19 Metoprolol Succinate 75 mg PO HS 10/22/19 Morphine Sulfate 1 - 2 tab PO Q4H PRN #60 tab 10/29/19 Sennosides/Docusate Sodium [Senokot-S] 2 tab PO HS tab 10/29/19 Tamsulosin HCl [Flomax] 0.4 mg PO DAILY@1800 cap.sr.24h 10/29/19 Acetaminophen [Tylenol] 1,000 mg PO Q8H tab 11/05/19 Baclofen 5 mg PO BID PRN #60 tab 11/05/19 Cefepime HCl [Maxipime] 2 gm IV Q12H #3 vial 11/05/19 Furosemide [Lasix] 20 mg PO QAM #30 tab 11/05/19 Metoprolol Succinate [Toprol Xl] 100 mg PO BID #60 tablet.sa 11/05/19 Pantoprazole Sodium [Protonix] 40 mg PO DAILY #30 tablet. 11/05/19 Potassium Chloride [K-Dur] 20 meq PO DAILY #30 tablet.sa 11/05/19 Simethicone [Mylicon Chewable Tablets] 80 mg PO BID #60 tab.chew 11/05/19 Sucralfate [Carafate] 1 g PO BID@0600,1600 #60 tab 11/05/19
[2019-11-05] MEDS: BACLOFEN 10 MG TABLET PO SCH (08:44)
[2019-11-05] MEDS: HYDROCHLOROTHIAZIDE 25 MG TABLET PO SCH (08:45)
[2019-11-05] MEDS: POTASSIUM CHLORIDE 20 MEQ TABLET.SA PO SCH (08:45)
[2019-11-05] MEDS: SIMETHICONE 80 MG TAB.CHEW PO SCH (08:45)
[2019-11-05] MEDS: METOPROLOL SUCCINATE 100 MG TABLET.SA PO SCH (08:46)
[2019-11-05] MEDS: BETA-CAROTENE(A) W-C , E/MIN 1 TAB TABLET PO SCH (08:46)
[2019-11-05] MEDS: MULTIVITAMINS 1 CAP CAPSULE PO SCH (08:46)
[2019-11-05] MEDS: ALLOPURINOL 300 MG TABLET PO SCH (08:47)
--- NOTE | 2019-11-05 09:20 | PN ---
Subjective - Date and Time Seen Date: 11/05/19 Time: 09:15 Subjective Narrative: Patient reports he is feeling much better. Is being discharged today back to [facility]. Pain controlled. Objective Objective Narrative: Knee surgical incisions clean and dry. No drainage. ROM right knee 7-110 degrees left left knee 10-90 degrees. Calves supple. Labs reviewed. - Vitals Vitals: Last Vital Signs Temp 36.9 C 11/05/19 06:15 Pulse 95 11/05/19 08:46 Resp 16 11/05/19 06:15 BP 141/79 11/05/19 08:46 Pulse Ox 96 11/05/19 06:15 - Abnormal Lab Findings Abnormal Lab Findings: Abnormal Lab Results 11/05/19 11/05/19 Range/Units 05:30 05:30 WBC 11.1 H (4.0-10.5) K/mm3 RBC 2.84 L (4.7-6.0) M/mm3 Hgb 8.5 L (13.5-18.0) gm/dL Hct 27.1 L (42.0-52.0) % MCHC 31.4 L (32-36) g/dl RDW 15.0 H (11.5-14.0) % Immature Gran % (Auto) 3.80 H (0.001-0.429) % Immature Gran # (Auto) 0.42 H (0.000-0.0310) K/mm3 Lymphocytes % 9.7 L (20-51) % Eosinophils % 5.6 H (0.0-3.0) % Neutrophils # 8.0 H (1.3-6.0) K/mm3 Lymphocytes # 1.07 L (1.5-3.5) k/mm3 Potassium 3.3 L (3.4-4.6) mmol/L BUN 45 H (6-23) mg/dL Creatinine 1.44 H (0.4-1.4) mg/dL Est GFR (Non-Af Amer) 50 L (60-130) mL/min BUN/Creatinine Ratio 31.3 H (9.0-21.6) Random Glucose 118 H (70-110) mg/dL Total Bilirubin 1.2 H (0.0-1.1) mg/dL AST 52 H (0-48) U/L Albumin 2.3 L (3.4-5.0) gm/dl - Exam Constitutional: Present: Alert, Oriented x3, Cooperative, No distress Cauti Physician Documentation - Urinary Catheter Management Urethral (Xie) Date of Insertion: 11/04/19 Time of Insertion: 23:30 Date of Removal: 11/04/19 Time of Removal: 16:51 Assessment/Plan - Problems/Diagnosis (1) Status post total right knee replacement Problem: Chronic Narrative: Skilled care for progressive therapy. Pain control. Patient has follow up in our office in 10-14 days. (2) Status post total left knee replacement Problem: Chronic (3) Ileus, unspecified Problem: Acute Narrative: Resolved (4) Normocytic anemia due to blood loss Problem: Acute (5) Acute renal failure Problem: Acute Qualifiers: Acute renal failure type: unspecified Qualified Code(s): N17.9 - Acute kidney failure, unspecified Narrative: Creatinine improved to baseline (6) Hypertension Problem: Chronic Qualifiers: (7) Atrial fibrillation Problem: Chronic Qualifiers: Atrial fibrillation type: chronic
[2019-11-05] MEDS ORDERED: FUROSEMIDE 20 MG TABLET PO SCH (11:00)
[2019-11-05] MEDS: PANTOPRAZOLE SODIUM 40 MG in NORMAL SALINE 100 ML IV SCH (11:05)
[2019-11-05 13:06] VITALS: BP 122/49
== END 2019-11-05 13:30 | DRG 388 ==
LOC: ER 17:55 → MS 23:11
PROVIDERS: ADMIT Family Medicine; ATTEND Family Medicine
DX: K56.609 Unspecified intestinal obstruction, unspecified as to partial versus complete obstruction; J18.9 Pneumonia, unspecified organism; R60.1 Generalized edema; I48.20 Chronic atrial fibrillation, unspecified; R33.9 Retention of urine, unspecified; Z79.01 Long term (current) use of anticoagulants; D62 Acute posthemorrhagic anemia; K56.7 Ileus, unspecified; I50.31 Acute diastolic (congestive) heart failure; Z87.891 Personal history of nicotine dependence; N17.9 Acute kidney failure, unspecified; Z96.653 Presence of artificial knee joint, bilateral; Y95 Nosocomial condition; K92.2 Gastrointestinal hemorrhage, unspecified; I48.91 Unspecified atrial fibrillation; J98.11 Atelectasis
CPT/HCPCS: 36415; 71010; 71045; 71250; 74019; 74020; 74176; 78582; 80053; 81001; 82150; 82272; 82550; 82553; 83519; 83605; 83690; 83880; 83930; 83935; 84300; 84484; 85025; 85610; 85730; 86140; 86850; 87040; 87081; 87086; 93005; 96374; 97110; 97116; 97161; 97165; 97530; 97535; 99285; A9539; A9540; A9567; J2405; Q9963